=== PATIENT | male | born 1945 | race Caucasian/White ===

== ENCOUNTER 2019-10-06 09:19 | Outpatient (CLI) | payer MEDICARE, SELFPAY | END 2019-10-06 09:20 | disposition home or self-care (01) | LOC: CHSLAB 09:21 | PROVIDERS: PCP Internal Medicine; Visit Provider Internal Medicine | DX: R31.9 Hematuria, unspecified (principal) | CPT/HCPCS: 88104; 88108; 88305 ==

== ENCOUNTER 2020-01-11 07:14 | Outpatient (CLI) | payer MEDICARE, SELFPAY ==
[2020-01-11 07:29] LABS: Add Urine Microscopic? YES; Appearance Urine Clear (Clear); Bilirubin Urine Negative (Negative); Blood Urine 2+ (Negative); Color Urine Yellow (Yellow); Glucose Urine UA Negative (Negative); Ketones Urine Negative (Negative); Leukocyte Esterase Ur Negative (Negative); Nitrate Urine Negative (Negative); Protein Urine Negative (Negative); Specific Grav Ur >= 1.030 (1.010-1.020); Urobilinogen Urine 0.2 mg/dL (0.2-1.0); pH Urine 5.5 (5.0-8.0)
[2020-01-11 07:40] LABS: Squamous Epithelial Cell Urine Rare /hpf (Few); WBC Urine None seen /hpf (0-3)
[2020-01-11 07:41] LABS: Bacteria Urine Trace /hpf; Mucus Urine Few /lpf
[2020-01-11 07:52] LABS: Hemoglobin A1C 6.4 % (<5.7)
[2020-01-11 08:50] LABS: Alanine Aminotransferase 25 U/L (16-63); Albumin Level 3.7 g/dL (3.4-5.0); Alkaline Phosphatase 125 U/L (46-116); Anion Gap 14.4 mmol/L (7-16); Aspartate Amino Transferase 20 U/L (15-37); Bilirubin,Total 0.3 mg/dL (0.00-1.00); Blood Urea Nitrogen 17 mg/dL (7-18); Calcium 9.1 mg/dL (8.5-10.1); Carbon Dioxide 28 mmol/L (21-32); Chloride 104 mmol/L (98-108); Cholesterol 144 mg/dL (0-200); Creatine Kinase 148 U/L (39-308); Estimated Glomerular Filt Rate > 60; Glucose 116 mg/dL (70-99); HDL Direct 39 mg/dL (40-60); LDL Cholesterol Calculated 78 mg/dL (<130); Osmolality Calculated 296 mOsm/kg (285-295); Potassium 4.4 mmol/L (3.5-5.1); Sodium 142 mmol/L (136-145); Total Protein 7.1 g/dL (6.4-8.2); Triglycerides 135 mg/dL (0-150)
== END 2020-01-11 07:15 | disposition home or self-care (01) ==
PROVIDERS: PCP Internal Medicine; Visit Provider Internal Medicine
DX: E78.2 Mixed hyperlipidemia (principal); E11.9 Type 2 diabetes mellitus without complications; I10 Essential (primary) hypertension
CPT/HCPCS: 36415; 80053; 80061; 81001; 82550; 83036

== ENCOUNTER 2020-01-22 08:09 | Outpatient (CLI) | payer MEDICARE, SELFPAY ==
--- NOTE | ~2020-01-22 | US_ITS ---
EXAMINATION: US retroperitoneal comp DATE: 01/22/2020 08:34 INDICATION: Hematuria. TECHNIQUE: Multiple ultrasound grayscale images of the kidneys were obtained. COMPARISON: CT 08/26/2017 FINDINGS: The right kidney measures 12.2 x 6.7 x 5.9 cm. The left kidney measures 12.0 x 5.3 x 6.2 cm. The kidn eys demonstrate normal parenchymal echogenicity. There is a 6.1 cm cyst in left kidney. There is no h ydronephrosis. The bladder is normal. IMPRESSION: 1. Normal kidney sizes. No hydronephrosis. Reviewed, dictated and finalized at location A.
== END 2020-01-22 08:10 | disposition home or self-care (01) ==
PROVIDERS: PCP Internal Medicine; Visit Provider Internal Medicine
DX: R31.9 Hematuria, unspecified (principal)
CPT/HCPCS: 76770

== ENCOUNTER 2020-07-15 07:00 | Outpatient (CLI) | payer MEDICARE, SELFPAY ==
[2020-07-15 07:17] LABS: Appearance Urine Clear (Clear); Bilirubin Urine Negative (Negative); Color Urine Yellow (Yellow); Glucose Urine UA Negative (Negative); Ketones Urine Negative (Negative); Leukocyte Esterase Ur Negative (Negative); Nitrate Urine Negative (Negative); Protein Urine Negative (Negative); Specific Grav Ur 1.025 (1.010-1.020); Urobilinogen Urine 0.2 mg/dL (0.2-1.0)
[2020-07-15 07:44] LABS: Add Urine Microscopic? YES; Blood Urine Trace (Negative)
[2020-07-15 07:45] LABS: Bacteria Urine Trace /hpf; Mucus Urine Moderate /lpf; WBC Urine 0-3 /hpf (0-3)
[2020-07-15 08:21] LABS: Hemoglobin A1C 6.2 % (<5.7)
[2020-07-15 08:38] LABS: Alanine Aminotransferase 27 U/L (16-63); Albumin Level 3.7 g/dL (3.4-5.0); Alkaline Phosphatase 112 U/L (46-116); Anion Gap 9 mmol/L (8-16); Aspartate Amino Transferase 26 U/L (15-37); Bilirubin,Total 0.4 mg/dL (0.00-1.00); Blood Urea Nitrogen 15 mg/dL (7-18); Calcium 8.9 mg/dL (8.5-10.1); Carbon Dioxide 28 mmol/L (21-32); Chloride 104 mmol/L (98-108); Cholesterol 149 mg/dL (0-200); Creatine Kinase 166 U/L (39-308); Estimated Glomerular Filt Rate > 60; Glucose 113 mg/dL (70-99); HDL Direct 42 mg/dL (40-60); LDL Cholesterol Calculated 88 mg/dL (<130); Osmolality Calculated 293 mOsm/kg (285-295); Potassium 5.4 mmol/L (3.5-5.1); Sodium 141 mmol/L (136-145); Total Protein 7.4 g/dL (6.4-8.2); Triglycerides 93 mg/dL (0-150)
== END 2020-07-15 07:01 | disposition home or self-care (01) ==
LOC: CHSLAB 07:02
PROVIDERS: PCP Internal Medicine; Visit Provider Internal Medicine
DX: E78.2 Mixed hyperlipidemia (principal); I10 Essential (primary) hypertension; R73.01 Impaired fasting glucose
CPT/HCPCS: 36415; 80053; 80061; 81001; 82550; 83036

== ENCOUNTER 2021-10-18 17:15 | Emergency (ER) | payer MEDICARE, OTHER, SELFPAY ==
--- NOTE | ~2021-10-18 | XR_ITS ---
EXAMINATION: XR elbow RT min 3V INDICATION: Rash of the elbow TECHNIQUE: Four views of the right elbow were obtained. COMPARISON: None available FINDINGS: There is no fracture, dislocation, or subluxation. The bones and joint spaces are normal. T here is posterior soft tissue swelling of the forearm. IMPRESSION: 1. Posterior soft tissue swelling of the forearm without acute osseous abnormality. Reviewed, dictated and finalized at location F. NCIAL SERVICES MANAGER IMPRESSION: 1. Posterior soft tissue swelling of the forearm without acute osseous abnormal ity.
[2021-10-18 17:44] VITALS: BP 171/107; PULSE 84; RESP 18; TEMP 36.1; O2SAT 98
[2021-10-18] MEDS: ACETAMINOPHEN 325 MG TABLET 650 MG PO (18:19)
[2021-10-18] MEDS: cefTRIAXone 1 GM VIAL IM (18:20)
[2021-10-18] MEDS: cloNIDine HCL 0.2 MG TABLET PO (18:20)
[2021-10-18 18:32] LABS: Basophils Absolute Auto 0.04 K/mm3 (0.00-0.10); Basophils Percent Auto 0.4 % (0.0-1.0); Eosinophils Absolute Auto 0.25 K/mm3 (0.02-0.50); Eosinophils Percent Auto 2.5 % (1.0-6.0); Hematocrit 42.2 % (37.0-46.0); Hemoglobin 14.3 g/dL (12.4-15.3); Immature Granulocyte Absolute 0.04 K/mm3 (0.00-0.00); Immature Granulocyte Percent A 0.4 % (0.0-0.0); Lymphocytes Absolute Auto 2.49 K/mm3 (1.10-4.50); Lymphocytes Percent Auto 24.6 % (18.0-42.0); Mean Corpuscular HGB Conc 33.9 g/dL (32.0-36.0); Mean Corpuscular Hemoglobin 30.2 pg (27.0-31.0); Mean Corpuscular Volume 89.2 fL (78.0-102.0); Mean Platelet Volume 8.8 fl (8.7-11.0); Monocytes Absolute Auto 1.03 K/mm3 (0.10-0.90); Monocytes Percent Auto 10.2 % (2.0-11.0); Neutrophils Absolute Auto 6.3 K/mm3 (1.7-7.2); Neutrophils Percent Auto 61.9 % (50.0-70.0); Platelet Count Result 288 K/mm3 (150-420); Red Blood Count 4.73 M/mm3 (4.70-6.10); Red Cell Distribution Width 13.7 % (11.6-14.4); White Blood Count 10.1 K/mm3 (4.8-10.8)
--- NOTE | 2021-10-18 18:41 | ED.SKABFB ---
HPI - Skin/Abscess/Foreign Bdy General Chief complaint: Skin/Abscess/Foreign Body Stated complaint: blister/rash right elbow Time Seen by Provider: 10/18/21 17:20 Source: patient and RN notes reviewed Mode of arrival: ambulatory Limitations: no limitations History of Present Illness complaint: rash, insect bite/sting and abscess/boil Onset (ago): day(s) (2) Tetanus up to date: unsure Location: RUE Severity: mild Severity scale (1-10): 4 Quality: aching and dull Pain Consistency: constant Relieving factors: none Exacerbating factors: none Associated symptoms: denies other symptoms Treatments prior to arrival: none Related Data Home Medications Medication Instructions Recorded Confirmed amlodipine 2.5 mg PO DAILY 10/18/21 10/18/21 atorvastatin 20 mg PO DAILY 10/18/21 10/18/21 losartan-hydrochlorothiazide 100 tablet PO DAILY 10/18/21 10/18/21 timolol maleate See Rx Instructions .ROUTE .COMPLEX 10/18/21 10/18/21 Allergies Allergy/AdvReac Type Severity Reaction Status Date / Time No Known Allergies Allergy Verified 10/18/21 18:13 Review of Systems Review of Systems: All systems reviewed & are unremarkable except as noted in HPI and below Constitutional: Constitutional: Reports as per HPI Musculoskeletal: Musculoskeletal: Reports arthralgias PMFSH Past Medical History Medical History Cellulitis Family History Family History Father Acute myocardial infarction Social History Social History Smoking status: Former smoker Exam Const: General: no acute distress and alert Nutritional Appearance: well nourished Orientation/consciousness: patient oriented x3 Limitations: no limitations HENMT: Head: normal to inspection Ears: external ears normal, TM's normal bilaterally and EAC's normal General nose exam: Normal external nose present and Normal nares present Face and sinus: normal facial exam and sinuses nontender Mouth: Yes moist mucous membranes Eyes: Conjunctivae: conjunctivae normal Pupils: Equal, round and reactive pupils present EOM: EOMs intact bilaterally Neck: Neck: normal visual inspection and no lymphadenopathy Other: supple Chest: Chest palpation & inspection: normal inspection of the chest Resp: Effort & Inspection: normal respiratory effort Auscultation: clear to auscultation bilaterally Cardio: Rate: regular rate Rhythm: regular rhythm GI: GI Palp: Yes Soft to palpation and No Tenderness to palpation present (GI) Auscultation: normal bowel sounds : General: Yes no CVA tenderness Male General Exam: Yes normal external exam Testes: Testes normal Back/Spine/Pelvis: Back: no CVA tenderness Skin: General skin exam: normal color Rashes: no rashes Neuro: General: patient oriented x3, moves all extremities, no meningeal signs, no focal motor deficits and CN's II-XI intact bilaterally Extrem: General: normal to inspection (right elbow cellulitis, no drainage, full ROM.), no clubbing, cyanosis or edema (right elbow redness and mildly swollen 8 cm diameter area. firm and minima) and no pedal edema Psych: Appearance: grossly normal and well kempt Mental Status: mental status grossly normal Affect: normal affect Thought content: Yes Normal thought content present Course Course Emergency Course: Stable pt with less right elbow pain Reevaluation(s) Reevaluation #1: VSS Date: 10/18/21 Time: 17:52 Vital Signs Vital signs: Vital Signs Temperature 36.1 C L 10/18/21 17:44 Pulse Rate 84 10/18/21 17:44 Respiratory Rate 18 10/18/21 17:44 Blood Pressure 171/107 H 10/18/21 17:44 Pulse Oximetry 98 10/18/21 17:44 Temperature 36.1 C L 10/18/21 17:44 Pulse Rate 84 10/18/21 17:44 Respiratory Rate 18 10/18/21 17:44 Blood Pressure 156/91 H 10/18/21 19:00 Pulse Oximetry 98 10/18/21 17:44
[2021-10-18 19:00] VITALS: BP 156/91
--- NOTE | 2021-10-18 19:00 | PC.NURSE ---
Wound cleaned up with hibclens and normal saline. Pt tolerated well. Wound dressed with dry 4x4 and wrapped with Kerlex per Dr. Romero verbal order. Pt tolerated well. Pt placed in right arm sling. PMS intact. Pt tolerated as well.
== END 2021-10-18 19:19 | disposition home or self-care (01) ==
PROVIDERS: Emergency Provider Emergency Medicine; PCP Internal Medicine
DX: L03.90 Cellulitis, unspecified (principal)
CPT/HCPCS: 36415; 73080; 85025; 96372; 99283; A4565; A9270; J0696

== ENCOUNTER 2022-10-14 13:01 | Outpatient (CLI) | payer MEDICARE, OTHER, SELFPAY ==
--- NOTE | ~2022-10-14 | XR_ITS ---
Right elbow Technique: AP, oblique, and lateral views were obtained. Clinical History: Pain Findings: No acute fracture or dislocation is seen. Osseous alignment is anatomic. Joint spaces are p reserved. There is no displacement of the fat pads, and soft tissues are unremarkable. Impression: Unremarkable radiographs. Reviewed, dictated and finalized at [facility]. COILER Impression: Unremarkable radiographs.
== END 2022-10-14 13:02 | disposition home or self-care (01) ==
LOC: CHSLAB 13:05
PROVIDERS: PCP Internal Medicine; Visit Provider Internal Medicine
DX: M86.631 Other chronic osteomyelitis, right radius and ulna (principal)
CPT/HCPCS: 73080

== ENCOUNTER 2022-10-17 07:32 | Outpatient (CLI) | payer MEDICARE, OTHER, SELFPAY ==
--- NOTE | ~2022-10-17 | MR_ITS ---
MRI of the right elbow CLINICAL HISTORY: Proximal ulnar osteomyelitis TECHNIQUE: Proton-density and proton-density fat-sat imaging was performed in the axial, coronal, and sagittal planes. FINDINGS: Ulnar collateral ligament is intact. Radial collateral ligament and the lateral ulnar colla teral ligament are intact. The common extensor and common flexor tendon origins are intact, without p artial tearing. There is probable mild tendinosis at the common extensor tendon origin. Bone marrow signals are unremarkable. No osseous or articular abnormality evident at the elbow joint. No elbow joint effusion. There is extensive edema of the proximal portions of the flexor digitorum profundus, flexor carpi uln debbi, and flexor digitorum superficialis muscles. There is subcutaneous soft tissue edema over the po sterior half of the elbow. No fluid collection/abscess identified. IMPRESSION: No evidence for osteomyelitis. Possible cellulitis over the posterior half of the elbow. Myositis of the proximal flexor digitorum profundus, flexor carpi ulnaris, and flexor digitorum super ficialis muscle bellies. This is presumably infectious in nature given history. Reviewed, dictated and finalized at [facility]. LANE WOODWORKER IMPRESSION: No evidence for osteomyelitis. Possible cellulitis over the posterior half of the elbow. Myositis of the proximal flexor digitorum profundus, flexor carpi ulnaris, and flexor digitorum superficialis muscle bellies. This is presumably infectious in nature given history.
== END 2022-10-17 07:33 | disposition home or self-care (01) ==
PROVIDERS: PCP Internal Medicine; Visit Provider Internal Medicine
DX: M86.8X8 Other osteomyelitis, other site (principal); M60.831 Other myositis, right forearm
CPT/HCPCS: 73221

== ENCOUNTER 2023-04-05 07:15 | Outpatient (CLI) | payer MEDICARE, OTHER, SELFPAY ==
--- NOTE | ~2023-04-05 | CT_ITS ---
EXAMINATION:CT lung screening DATE: 04/05/2023 07:34 INDICATION: Personal history of nicotine dependence. Smoker who quit 13 years ago with 46 pack year h istory. TECHNIQUE: Computed tomography (CT) of the chest was performed without intravenous contrast. Automate d exposure control and iterative reconstruction technique were employed. The dose-length product (DLP ) was 255.01 mGy-cm. COMPARISON: Chest CT 10/28/2018 FINDINGS: There is mild scarring at the lung apices. Calcified pulmonary nodules are consistent with old granulomatous disease. No pleural effusion. The heart size is normal. There are coronary artery c alcifications. No pericardial effusion. There is a small sliding hiatal hernia. Calcifications in the liver and spleen are consistent with old granulomatous disease. There is a 2.7 cm cyst in left kidne y. There is severe cervical spondylosis and mild thoracic spondylosis. There is mild chronic anterior wedging of multiple vertebral bodies. IMPRESSION: 1. Lung-RADS category 2: Benign appearance or behavior. Continue annual screening with noncontrast lo w-dose chest CT in 12 months. Reviewed, dictated and finalized at location A. IMPRESSION: 1. Lung-RADS category 2: Benign appearance or behavior. Continue annual screeni ng with noncontrast low-dose chest CT in 12 months.
== END 2023-04-05 07:16 | disposition home or self-care (01) ==
LOC: CHSIMG 07:17
PROVIDERS: PCP Internal Medicine; Visit Provider Internal Medicine
DX: Z12.2 Encounter for screening for malignant neoplasm of respiratory organs (principal); Z87.891 Personal history of nicotine dependence
CPT/HCPCS: 71271

== ENCOUNTER 2023-06-28 07:49 | Outpatient (CLI) | payer MEDICARE, OTHER, SELFPAY ==
--- NOTE | ~2023-06-28 | XR_ITS ---
Clinical Indication: Preoperative evaluation, abdominal aortic aneurysm PA and lateral views of the chest: Comparison: None Findings: The lungs are clear, without evidence of focal consolidation or pleural effusion. Cardiome diastinal silhouette is within normal limits. Bones and soft tissues are unremarkable. Impression: Normal chest. Reviewed, dictated and finalized at [facility]. ER MACHINE OPERATOR Impression: Normal chest.
--- NOTE | 2023-06-28 08:24 | ECG_ITS ---
Measurements Intervals [place] Rate: 61 P: 54 FL: 140 QRS: 25 QRSD: 92 T: 1 QT: 404 QTc: 409 Interpretive Statements SINUS RHYTHM MINIMAL Q WAVES- INFERIOR LEADS BORDERLINE ECG NO PREVIOUS ECG AVAILABLE FOR COMPARISON Electronically Signed On 06-28-2023 10:03:16 SEARCH MANAGER by Oliver Jack D.O.
[2023-06-28 08:49] LABS: Basophils Percent Auto 0.5 % (0.2-1.2); Eosinophils Absolute Auto 0.2 K/mm3 (0-0.3); Eosinophils Percent Auto 2.1 % (0-4.4); Hematocrit 40.1 % (42.0-52.0); Hemoglobin 12.8 g/dL (14.0-18.0); Immature Granulocyte Absolute 0.04 K/mm3 (0.00-0.031); Immature Granulocyte Percent A 0.5 % (0-0.5); Lymphocytes Absolute Auto 1.57 K/mm3 (0.9-3.2); Lymphocytes Percent Auto 20.5 % (18.3-44.2); Mean Corpuscular HGB Conc 31.9 g/dl (32-36); Mean Corpuscular Hemoglobin 27.4 pg (26-34); Mean Corpuscular Volume 85.9 fl (80-100); Mean Platelet Volume 9.4 fl (7.4-10.4); Monocytes Absolute Auto 0.9 K/mm3 (0.1-0.6); Monocytes Percent Auto 11.6 % (2.6-8.5); Neutrophils Percent Auto 64.8 % (45.5-73.1); Platelet Count Result 309 k/mm3 (150-375); Red Blood Count 4.67 M/mm3 (4.6-6.20); Red Cell Distribution Width 15.6 % (11.5-14.5); White Blood Count 7.7 K/mm3 (4.5-10.0)
[2023-06-28 08:59] LABS: Prothrombin Time 13.2 Seconds (11.1-14.7)
[2023-06-28 09:00] LABS: Anion Gap 6 mmol/L (8-16); Blood Urea Nitrogen 16 mg/dL (9-20); Calcium 9.4 mg/dL (8.4-10.2); Carbon Dioxide 28 mmol/L (22-30); Chloride 105 mmol/L (98-107); Estimated Glomerular Filt Rate > 60; Glucose 126 mg/dL (65-110); Potassium 3.7 mmol/L (3.4-5.0); Sodium 139 mmol/L (137-145)
== END 2023-06-28 07:50 | disposition home or self-care (01) ==
PROVIDERS: PCP Internal Medicine
DX: I97.89 Other postprocedural complications and disorders of the circulatory system, not elsewhere classified (principal); I71.40 Abdominal aortic aneurysm, without rupture, unspecified
CPT/HCPCS: 36415; 71046; 80048; 85025; 85610; 85730; 93005

== ENCOUNTER 2024-10-19 02:12 | Day surgery (SDC) | payer MEDICARE, OTHER, SELFPAY ==
[2024-10-06 10:58] VITALS: BMI 36.9
--- OUTSIDE RECORDS SUMMARY | 2024-10-19 02:17 | XMS_ITS | Clinical Summary ---
Author Organization [facility] Address [address] [place] [address] Care Team Providers Care Stockroom Inventory Clerk Name Role Phone Jayashree Orellana MD Primary Care Provider [phone] Medications amLODIPine 2.5 MG tablet Take 2.5 mg by mouth daily. 09/08/2021 Active atorvastatin 20 MG tablet Take 20 mg by mouth nightly at bedtime. 08/24/2021 Active Losartan Potassium-HCTZ 100-12.5 MG Tab Take 1 tablet by mouth daily. 08/31/2021 Active timolol 0.5 % ophthalmic solution Place 1 drop into the left eye 2 (two) times daily. 08/17/2021 Active aspirin EC (ASPIRIN EC) 81 MG tablet Take 81 mg by mouth daily. 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 Gender Identity Not on file Sexual Orientation Not on file Last Filed Vital Signs Vital Sign Reading Time Taken Comments Blood Pressure 148/109 11/03/2021 6:39 AM CDT 135/87 lt arm Pulse 73 11/03/2021 6:39 AM CDT Temperature 35.8 C (96.4 F) 11/03/2021 6:39 AM CDT Respiratory Rate 10 11/03/2021 6:39 AM CDT Oxygen Saturation 97% 11/03/2021 6:3 9 AM CDT Inhaled Oxygen Concentration - - Weight 121.7 kg (268 lb 4.8 oz) 11/03/2021 6:39 AM CDT Height 180.3 cm (5' 11 ) 11/03/2021 6:3 9 AM CDT Body Mass Index 37.42 11/03/2021 6:39 AM CDT Plan of Treatment Health Maintenance Due Date Last Done Comments Hepatitis C 02/25/1963 DTaP, Tdap and Td Vaccines ( 1 - Tdap) 1964 Annual Medicare Wellness Visit 2011 Pneumococcal Vaccine: 65+ Years (1 of 1 - PCV) 2011 RSV Immunization or 60+ Years (1 - 1-dose 75+ series) 2021 COVID-19 Vaccine (4 - 2023-2 5 season) 2024 05/26/2021, 11/01/2020, 10/11/2020 Influenza Adult (#1) 2024 07/08/2021 Zoster Vaccines Completed 05/08/2020, 01/25/2020 Meningococcal B Vaccine Aged Out No l onger eligible based on patient's age to complete this topic Meningococcal Vaccine Aged Out No jose gabriel eligible based on patient's age to complete this topic RSV Immunizations Under 20 Months Aged Out No longer eligible b ased on patient's age to complete this topic Medical Devices Implanted Type Area Field Merchandiser Device Identifier Shelf Expiration Date Model / Serial / Lot Penumbra Sweta Coil Lp Endo Leak-11/03/2021 Implanted:2021 by Surjit Cornejo MD (Quantity not on file) Coil PENUMBRA 09/25/2024 [id number] / / [id number] Penumbra Sweta Coil Lp Endo Leak-11/03/2021 Implanted:2021 by Surjit Cornejo MD (Quantity not on file) Coil PENUMBRA 09/05/2024 [id number] / / [id number] Penumbra Sweta Coil Lp Endo Leak-11/03/2021 Implanted:2021 by Surjit Cornejo MD (Quantity not on file) Coil PENUMBRA 09/05/2024 [id number] / / [id number] Insurance MEDICARE [facility] Care Teams Stockroom Inventory Clerk Relationship Specialty Start Date End Date Jayashree Orellana MD [address] [place] [address] PCP - General INTERNAL MEDICINE 10/31/21
--- OUTSIDE RECORDS SUMMARY | 2024-10-19 02:17 | XMS_ITS | Data Portability ---
Author Organization [facility], [address] [place] [address] [place] ([place]) Address [address] [address] Care Team Providers Care Calculating Machine Operator Name Role Phone SAL BORJAS Primary Care Provider [phone] Assessment Encounter Date Assessment Date Assessment LastModified by Organization Details LastModified Time 05/05/2024 05/05/2024 1. 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 Db Chavez Not available Not available Not available Lab None recorded . Referral None recorded . Procedures None recorded . Surgeries None recorded . Imaging None recorded . Medication Orders None recorded . Patient TargetsNo targets recorded. Patient InstructionsNo instructions recorded. Reason for Referral None Reported. Results Created Date Observation Date Name Description Value Unit Range Abnormal Flag Note LastModifiedBy Organization Detail LastModifiedTime 05/05/2005/05/2024 Crea iStat creatinine-i stat Not Available [facility] [address] [place] [address], [address], 05/05/2024 13:00:36 05/05/2005/05/2024 Crea iStat creatinine 0.9 mg/dL 0.7-1. 3 Not Available [facility] [address], [address], 05/05/2024 13:00:36 05/05/2005/05/2024 Crea iStat eGFR;non-afr ican singaporean 87 Not Available [facility] [address] [place] [address], [address], 05/05/2024 13:00:36 05/05/20 24 05/05/2024 Crea iStat eGFR; 105 (LEAD PROJECT ENGINEER JAEL KIDNE Y DISEA SE HAS A GFR LESS THAN 60 ML/KS N/1.7 3 MM FOR A PERIO D OF THREE MONTH S OR MORE. ) Not Available [facility] [address] [place] [address], [address], 05/05/2024 13:00:36 09/26/19 25 09/26/2024 POC CREA creatinine, I-stat 1.2 mg/dL 0.7-1. 4 Not Available [facility] - [facility] [address], [address], 09/26/2024 16:08:24 05/05/20 24 05/05/2024 CT, angio gram, abdom en + pelvi s, w/ contr ast [address] [address] Teleph one [phone] Name: Lani Covington [id number] am Date: 2023 Age: 79Phys ician: Cecilio ya MD, Surjit : 1944Ex aminat ion: CTA ABD/PE L W PLUS POST PROCES S CTA ABDOME N AND PELVIS HISTOR Y: Abdomi nal aortic aneury sm post repair . Follow -up. Radha hayden histor y. COMPAR FIORDALIZA EXAMS: CTA 023 TECHNI QUE: Noncon trast images of the abdomi nal aorta obtain ed. CTA abdome n and pelvis obtain ed before and after the intrav enous admini strati on of 100 millil iters of Isovue -370 via the right antecu bital fossa . Portal venous phase images obtain ed throug h the abdome n. Multip le vascul ar reform ats, vascul ar analys is and 3-D recons tructi ons were obtain ed for diagno sis. Automa velasquez exposu re contro l was used as a dose optimi zation techni que for the examin ation. FINDIN GS: CTA abdome n/pelv is: There is athero sclero sis of the abdomi nal aorta. The celiac axis is widely patent . Replac ed left hepati c artery arises from the left gastri c artery . The SMA is widely patent . There are single bilate ral renal arteri es which are widely patent . The JODIE is occlud ed, unchan ged. The patien t is status post aortob iiliac stent repair of a previo usly seen abdomi nal aortic aneury sm. Stent graft arises just below the takeof f of the renal arteri es extend ing into the right service or work dispatcher al iliac artery and mid to distal left common iliac artery . Stent graft appear s widely patent . Emboli c coils are presen t within the miccosukee aneury sm sac. There is eviden ce for type II endole ak within the [place]uke[place] aneury sm sac which was presen t on prior. The miccosukee aneury sm sac measur es approx imatel y 7.6 x 8.5 cm, previo usly 7.2 x 7.9 cm. No retrop eriton eal hemorr nile is identi fied. Emboli c coils are also presen t within the right vacuum truck driver ior pelvis , unchan ged. Stable focal aneury smal dilata tion of the right proxim al pharmacy grad intern al iliac artery measur ing approx imatel y 2.5 cm which appear s thromb osed, unchan ged. No pelvic hemorr nile. CT ABDOME N: Lung bases are clear. No pleura l or perica rdial effusi ons are presen t at the lung bases. Liver is normal in morpho logy. There is no hepati c mass. The gallbl adder is normal . There is no bile duct dilata tion. The spleen is normal in size. Small calcif icatio ns within both the liver and spleen sequel a of prior granul omatou s diseas e. The pancre as is normal . There is no adrena l mass. No renal calcul i bilate rally. There is a small parape lvic cyst at the superi or aspect of the left kidney , unchan ged. There is a large exophy tic cyst arisin g from the anteri or mid inferi or left kidney measur ing up to 11.5 cm, unchan ged. A few very small right renal cysts are presen t. There is no hydron ephros is bilate rally. There is no upper abdomi nal lympha denopa thy. CT PELVIS : The bowel is unopac ified. No signif icantl y dilate d loops of small bowel are identi fied. There is coloni c divert iculos is. Append ix not seen. No second hayley signs of acute append icitis . There is no bowel obstru ction or free air. There is a tiny fat-co ntaini ng perium bilica l hernia . The urinar y bladde r is not well-d istend ed. The prosta te gland is mildly enlarg ed. A few scatte red pelvic phlebo liths are presen t. There is no free pelvic fluid. There is no pelvic lympha denopa thy. No destru ctive osseou s lesion s are identi fied. IMPRES RAFI: 1. Mild interv al increa se in size of the miccosukee aneury sm sac post aortob iiliac stent repair with eviden ce for persis tent type II endole ak. No retrop eriton eal pelvic hemorr nile is identi fied. 2. Coloni c divert iculos is. Electr onical ly signed in [place] amanda by: ELIZABETH VARGAS MD on:04/23 12:53 PM cc: Page PAGE 1 of [facility] 1 [email or web address] [facility] [address] [place] [address], [id number], 05/14/2024 23:11:14 09/26/19 25 09/26/2024 CT, angio gram, abdom en + pelvi s, w/wo contr [facility] [address] [place] [address] Name: LANI COVINGTON 6 Age: 79 : 1944 Exam Date: 2024 ACCESS ION: [id number] ESTEFANI KILPATRICK MD: MARGI SINGH Exam: CTA Abd/Pe l w/wo contra st Histor y: Patien t presen ts for follow up AAA with repair . He has no compla ints. IR clinic appoin tment to follow . Histor y of Cancer : denies Histor y of Surger y: appy, aaa repair Techni que: Precon trast images of the abdome n and pelvis were obtain ed. Arteri al phase images of the abdome n and pelvis were obtain ed after 100ml of Omnipa que 350 was inject ed throug h the rac withou t eviden ce of advers e reacti on. Delaye d postco ntrast images of the abdomi nal aorta were obtain ed. Volume tric MIP images were create d from the arteri al phase data set. Automa velasquez exposu re contro l was used for dose optimi zation on this exam. CTDIvo l in mGy: 118.6 DLP in mGy-cm : 3904 Compar fiordaliza: The Findin gs: Vascul ar: There is an infrar enal abdomi nal aortic aneury sm status post endova scular aortob i-jamey c repair . The aneury sm measur es 8.4 cm x 8 cm (previ ously 7.6 cm x 7.5 cm). The stent graft origin ates inferi or to the renal arteri es and termin ates in the left common iliac and right service or work dispatcher al iliac artery . There is metall ic emboli zation materi al within the aneury sm sac and stent graft, which result s in signif icant metall ic hardwa re artifa ct and partia lly limits evalua tion for stenos is and endole ak. There is a modera te amount of endole ak within the anteri or aneury sm sac. A defini tive etiolo gy is not identi fied, howeve r this may be type 2 from the inferi or mesent susana artery . The inferi or mesent susana artery contai ns emboli zation materi al. Other major abdomi nal aortic branch es are patent withou t hemody namica lly signif icant stenos is. Right pharmacy grad intern al iliac artery is comple tely occlud ed at its origin with some distal collat eral recons tituti on. The service or work dispatcher al iliac arteri es are patent withou t signif icant stenos is Nonvas cular: The liver, gallbl adder, pancre as, spleen , adrena ls, and right kidney are unrema rkable . Left renal sinus cyst measur es 3.2 cm. Bowel calibe r is normal . There is coloni c divert iculos is withou t associ ated inflam matory change s. No ascite s or pneumo perito neum. No aggres sive osseou s lesion s. Impres rafi: Infrar enal aortic aneury sm status post endova scular repair measur ing 8.4 cm is increa sed (previ ously 7.6 cm). There is endole ak within the anteri or aneury sm sac that is incomp letely charac terize d due to signif icant artifa ct from emboli zation materi al. This could be type 2 from the inferi or mesent susana artery . This report was dictat ed remote ly by a [facility]iol ogist in [place], [place]. Final Report Dictat ed: 16:14 Db Anderson MD Signed : 16:14 Db Anderson MD INTERFACE [facility] [address] [place] [address], [id number], 09/26/2024 17:18:54 Result Notes None recorded. Problems Name Problem SNOMED Code Status Onset Date Resolution Date Notes Provider Name and Address Organization Details Recorded Time Abdominal aortic aneurysm without rupture 05756729 Active 024 Katelyn Bravo [facility] 4 03:55:07 Aneurysm of infrarenal abdominal aorta 797169670 Active 024 Surjit Cornejo MD [address] [place] [address], [phone] [place] [address] 4 21:58:55 Problem Notes None recorded. Procedures Surgical History None recorded. Imaging Results Imaging Date Name Status LastModified by Organiz [facility] Details LastModified Time 05/05/2024 CT, angiogram, abdomen + pelvis, w/ contrast completed [id number] [facility] [address] [place], [address], 05/14/2024 23:11:14 09/26/2024 CT, angiogram, abdomen + pelvis, w/wo contrast completed INTERFACE [facility] - [facility] [address] [place] [address] [place], [address], 09/26/2024 17:18:54 Procedure Notes None recorded. Medical Equipment None Reported. Medications Name Sig Start Date Stop Date Status Note LastModified by Organization Details LastModified Time cefuroxime axetil 250 mg tablet TAKE 1 TABLET BY MOUTH EVERY 12 HOURS 05/05 completed Not Available Not Available Not Available atorvastati n 20 mg tablet TAKE 1 TABLET BY MOUTH EVERY DAY active Not Available Not Available No t Available Nexium 40 mg capsule,del ayed release Take 1 capsule every day by oral route. active Not Available Not Available No t Available aspirin 81 mg tablet,gayle yed release Take 1 tablet every day by oral route. active Not Available Not Available No t Available amlodipine 10 mg tablet TAKE 1 TABLET BY MOUTH EVERY DAY active Not Available Not Available No t Available timolol maleate 0.25 % eye drops INSTILL 1 DROP IN LEFT EYE TWICE DAILY active Not Available Not Available No t Available clotrimazol e-betametha sone 1 %-0.05 % topical cream APPLY TO AFFECTED AREA TWICE A DAY IN THE MORNING AND IN THE EVENING 05/05 completed Not Available Not Available Not Available mupirocin 2 % topical ointment APPLY SPARINGLY TO AFFECTED AREA TWICE A DAY 05/05 completed Not Available Not Available Not Available timolol maleate 0.5 % eye drops INSTILL 1 DROP INTO LEFT EYE TWICE A DAY active Not Available Not Available No t Available losartan 100 mg-hydrochl orothiazide 12.5 mg tablet TAKE 1 TABLET BY MOUTH EVERY DAY active Not Available Not Available No t Available Vitals Date Recorded Body height Body mass index (BMI) Body weight Heart rate Respiratory rate Oxygen saturation Oxygen saturation in Arterial blood by Pulse oximetry Systolic blood pressure Diastolic blood pressure Provider Name and Address Organization Details Last Updated DateTime 154.94 cm 50.6 kg/m2 645367. 76 g 68 /min 16 /min 97 % 97 % 142 mm[Hg] 82 mm[Hg] Yenny Vicente [facility] 14:32:08 Social History None recorded. Functional Status None recorded. Mental Status None recorded. Family History Nothing Reported. Medical History No medical history recorded. Past Encounters Encounter ID Performer Location Encounter Start Date Encounter Closed Date Diagnosis/Indication Diagnosis SNOMED-CT Code Diagnosis ICD10 Code Diagnosis Note [id number] Surjit Cornejo MD [address] [facility] [facility] [address] [place] [address] [address] 05/05/2024 13:28:23 05/05/2024 16:29:18 Aneurysm of infrarenal abdominal aorta 105802877 I71.43 Additional diagnosis detail: Infrarenal abdominal aortic aneurysm (AAA) without rupture Health Concerns Section Related Observation LastModified by Organization Detai ls LastModified Time None Recorded Concern Status LastModified by Organization Details LastModified Time None Recorded Advance Directives Directive None Recorded Payers Encounter Date Sequence Insurance Name Policy Number Policy Soares Covered Member ID Soares Member ID Guarantor Name 05/05/2024 1 [place] Lani Covington [id number] Lani Covington 05/05/2024 2 [facility] Lani Covington [id number] Lani Covington Notes Date Note Type Note Provider Name and Address Organization Details Recorded Time 05/05/2024 text/html Chief Complaint (CC): Follow-up for endovascular aneurysm repair.History of Present Illness (HPI): The patient, a 79-year-old gentleman, presents for follow-up after undergoing right internal iliac artery coil embolization and right iliac limb extension for a type 1b endoleak in June 2023 at [facility]. He has a history of endovascular aneurysm repair with a core excluder stent graft and previous embolization of the inferior mesenteric artery (JODIE) for an enlarging aneurysm sac. A recent CT scan shows a persistent type 2 endoleak with slight aneurysm growth of 1-2 millimeters, indicating back pressure into the aneurysm sac. The patient reports feeling like a pincushion due to multiple venipunctures during recent procedures. Surjit Cornejo MD [address] [place] [address], [phone], [facility] 05/14/2024 22:00:19
[2024-10-19 09:07] VITALS: BP 132/81; PULSE 85; RESP 20; TEMP 36.3; O2SAT 97; BMI 35.9
[2024-10-19] MEDS: LACTATED RINGERS 1,000 ML 150 ML IV CONT (09:18)
--- NOTE | 2024-10-19 10:01 | PM.IMHP ---
H&P: HPI History of Present Illness Date/Time: 10/19/24 10:01 Chief Complaint: Iron deficiency anemia Narrative: This is a 79-year-old man who presents for colonoscopy. He has recently been found to have anemia and was found to be iron deficient. He denies any hematochezia or melena prior to starting the iron, but now since he started on iron supplement his stools are black. He denies any family history of colon cancer. He did have a colonoscopy about 25 years ago. Review of Systems Review of Systems: All systems reviewed & are unremarkable except as noted in HPI and below Constitutional: Constitutional: Denies chills, Denies fever(s), Denies headache(s) and Denies weight loss Eyes: Eyes: Denies change in vision ENT: Denies dizziness, Denies headache(s), Denies neck mass and Denies throat swelling Cardiovascular: Cardiovascular: Denies chest pain, Denies lightheadedness and Denies dyspnea Respiratory: Respiratory: Denies cough, Denies dyspnea and Denies wheezing Gastrointestinal: Gastrointestinal: Denies abdominal pain, Denies change in bowel habits, Denies nausea and Denies vomiting Genitourinary: Genitourinary: Denies hematuria and Denies dysuria Musculoskeletal: Musculoskeletal: Reports as per HPI Integumentary/Breasts: Skin/Breast: Reports as per HPI Neurologic: Denies dizziness and Denies headache(s) Allergic/Immunologic: Allergic/Immunologic: Denies throat swelling and Denies wheezing [facility] Past Medical History Medical History (Updated 10/19/24 @ 10:02 by Markus Armando DO) AAA (abdominal aortic aneurysm) Hyperlipidemia Hypertension Cellulitis Family History Family History Father Acute myocardial infarction Social History Social History (System 10/02/24 @ 14:33 by Vernell Yeh) Smoking packs per day: 1 Smoking cigarettes per day: 20.0 Years smoked: 40 Smoking pack-years: 40.00 Smoking status: Former smoker Tobacco type: cigarettes Alcohol intake: current Drinks per week: 1 Alcohol use details: socially Substance use: never Substance use type: does not use Living arrangements: with family Spiritual care concerns: No Meds Home Medications and Allergies Home Medications ?Medication ?Instructions ?Recorded ?Confirmed ?Type acetaminophen 325 mg tablet 650 mg (2 x 325 mg) PO Q8H #20 tabs 10/18/21 10/06/24 Rx (Tylenol) amlodipine 2.5 mg tablet 10 mg PO DAILY 10/18/21 10/06/24 History atorvastatin 20 mg tablet 20 mg PO DAILY 10/18/21 10/19/24 History losartan 100 100 tablet PO DAILY 10/18/21 10/19/24 History mg-hydrochlorothiazide 12.5 mg tablet timolol maleate 0.5 % eye drops See Rx Instructions .Route .COMPLEX 10/18/21 10/19/24 History amlodipine 10 mg tablet 10 mg PO DAILY 09/05/24 10/19/24 History aspirin 81 mg tablet,delayed 81 mg PO DAILY 09/05/24 10/19/24 History release (Adult Low Dose Aspirin) esomeprazole magnesium 20 mg 20 mg PO DAILY 09/05/24 10/19/24 History capsule,delayed release (Nexium) ferrous sulfate 325 mg (65 mg 325 mg PO DAILY 09/05/24 10/19/24 History iron) tablet (Iron (ferrous sulfate)) multivitamin 1 tablet PO DAILY 09/05/24 10/19/24 History Allergies Allergy/AdvReac Type Severity Reaction Status Date / Time No Known Allergies Allergy Verified 10/19/24 09:05 Vital Signs Vital Signs - 24 hr 10/19/24 09:07 Temperature 97.4 F L Pulse Rate 85 Respiratory Rate 20 Blood Pressure 132/81 Pulse Oximetry 97 Oxygen Delivery Room Air Exam Const: General: no acute distress and alert Orientation/consciousness: patient oriented x3 HENMT: Head: normocephalic and atraumatic Ears: hearing grossly normal bilaterally Face/Nose/Sinus: Normal nares present Mouth: Yes Normal oral and palatal mucosa present Eyes: Periorbital: periorbital findings normal Sclera: sclerae normal EOM: EOMs intact bilaterally Neck: Neck: normal visual inspection, no lymphadenopathy and trachea midline Chest: Chest palpation & inspection: normal inspection of the chest Resp: Effort & Inspection: normal respiratory effort Auscultation: clear to auscultation bilaterally Cardio: Jugular venous distension: no JVD Rate: regular rate Rhythm: regular rhythm Heart sounds: S1 normal heart sound present and S2 normal heart sound present Peripheral pulses: Peripheral pulses 2+ throughout GI: Inspection: normal to inspection GI Palp: Yes Soft to palpation, No Tenderness to palpation present (GI), No Guarding due to palpation present (GI) and No Rebound tenderness present Percussion: Yes normal to percussion Auscultation: normal bowel sounds : General: Yes no CVA tenderness Back/Spine/Pelvis: Back: no CVA tenderness Neuro: General: patient oriented x3, no focal motor deficits and CN's II-XI intact bilaterally Cognition (Neuro): normal cognition Speech: normal speech Motor exam (neuro): 5/5 motor strength present throughout Extrem: General: capillary refill normal and no clubbing, cyanosis or edema Assessment and Plan Assessment and plan (1) Iron deficiency anemia: Code(s): D50.9 - Iron deficiency anemia, unspecified Status: Acute Assessment and Plan: I have recommended colonoscopy. I have discussed the procedure, risks, benefits, and alternatives. Questions were answered. Patient is agreeable to proceed.
--- NOTE | 2024-10-19 10:09 | WPDANESEPPF ---
Anes - Initial Pre Proc Eval Procedure: Operation Date: 10/19/24 10:00 Proposed Procedures p Colonoscopy - Markus Armando DO Date/Time: 10/19/24 10:09 Surgeon: Markus Armando DO Pre Op Diagnosis: Iron deficiency anemia Patient Data Age: 79 Gender: M Height: 1.8 m Weight: 117 kg Last Vital Signs Temp 97.4 F L 10/19/24 09:07 Pulse 85 10/19/24 09:07 Resp 20 10/19/24 09:07 BP 132/81 10/19/24 09:07 Pulse Ox 97 10/19/24 09:07 O2 Del Method Room Air 10/19/24 09:07 Allergies Allergy/AdvReac Type Severity Reaction Status Date / Time No Known Allergies Allergy Verified 10/19/24 09:05 Home Medications ?Medication ?Instructions ?Recorded ?Confirmed ?Type acetaminophen 325 mg tablet 650 mg (2 x 325 mg) PO Q8H #20 tabs 10/18/21 10/06/24 Rx (Tylenol) amlodipine 2.5 mg tablet 10 mg PO DAILY 10/18/21 10/06/24 History atorvastatin 20 mg tablet 20 mg PO DAILY 10/18/21 10/19/24 History losartan 100 100 tablet PO DAILY 10/18/21 10/19/24 History mg-hydrochlorothiazide 12.5 mg tablet timolol maleate 0.5 % eye drops See Rx Instructions .Route .COMPLEX 10/18/21 10/19/24 History amlodipine 10 mg tablet 10 mg PO DAILY 09/05/24 10/19/24 History aspirin 81 mg tablet,delayed 81 mg PO DAILY 09/05/24 10/19/24 History release (Adult Low Dose Aspirin) esomeprazole magnesium 20 mg 20 mg PO DAILY 09/05/24 10/19/24 History capsule,delayed release (Nexium) ferrous sulfate 325 mg (65 mg 325 mg PO DAILY 09/05/24 10/19/24 History iron) tablet (Iron (ferrous sulfate)) multivitamin 1 tablet PO DAILY 09/05/24 10/19/24 History Patient hx anesthesia problems: none Family hx anesthesia problems: none Results Review: All pre-operative results and documents have been reviewed as part of the pre-operative evaluation. [facility] Past Medical History Medical History AAA (abdominal aortic aneurysm) Hyperlipidemia Hypertension Cellulitis Family History Family History Father Acute myocardial infarction Social History Social History Smoking packs per day: 1 Smoking cigarettes per day: 20.0 Years smoked: 40 Smoking pack-years: 40.00 Smoking status: Former smoker Tobacco type: cigarettes Alcohol intake: current Drinks per week: 1 Alcohol use details: socially Substance use: never Substance use type: does not use Living arrangements: with family Spiritual care concerns: No Anes - Eval Final PreProcedure Day of Procedure 10/19/24 10:09 Patient weight: obese Lungs: normal air movement Airway: Mallampati scale class II Neurological: alert and oriented Last oral intake: >/= 8 hours ASA classification: III Emergent: no Anesthetic plan: proceed Anesthesia type and monitoring: general GIVS and standard monitoring Results Review: All pre-operative results and documents have been reviewed as part of the pre-operative evaluation. HTN, hyperlipidemia, hx AAA repair. Informed Consent: The patient's anesthetic plan and its attendant risks and benefits were discussed with the patient/family/POA. Questions were solicited and answers provided to the satisfaction of the patient/family/POA.
[2024-10-19 10:43] VITALS: BP 103/69; PULSE 88; RESP 16; O2SAT 96
[2024-10-19 10:53] VITALS: BP 124/78; RESP 16; O2SAT 95
[2024-10-19 11:03] VITALS: BP 125/80; PULSE 71; RESP 17; O2SAT 96
== END 2024-10-19 11:18 | disposition home or self-care (01) ==
PROVIDERS: PCP Internal Medicine; Visit Provider Surgery
PROC: 0DJD8ZZ Inspection of Lower Intestinal Tract, Via Natural or Artificial Opening Endoscopic (ICD-10-PCS; CPT 45378; principal; 2024-10-19 10:00)
DX: D50.9 Iron deficiency anemia, unspecified (principal); D12.0 Benign neoplasm of cecum; D12.2 Benign neoplasm of ascending colon; K57.30 Diverticulosis of large intestine without perforation or abscess without bleeding; Z87.891 Personal history of nicotine dependence; E66.9 Obesity, unspecified; Z68.36 Body mass index [BMI] 36.0-36.9, adult
CPT/HCPCS: 45380; 45385; 88305; J2003; J2704; J7120

== ENCOUNTER 2024-11-17 09:40 | Outpatient (CLI) | payer MEDICARE, OTHER, SELFPAY ==
--- OUTSIDE RECORDS SUMMARY | 2024-11-17 10:33 | XMS_ITS | Data Portability ---
Author Organization [facility], [address] [place] [address] Neurology (MD) Address [address] [address] Care Team Providers Care Mine Shifter Name Role Phone SAL BORJAS Primary Care Provider Assessment Encounter Date Assessment Date Assessment LastModified by Organization Details LastModified Time 05/05/2024 05/05/2024 1. 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 Db Chavez Not available Not [...] 05/05/2005/05/2024 Crea iStat creatinine-i stat Not Available [facility] [address] [place] [address], [address], 05/05/2024 13:00:36 05/05/2005/05/2024 Crea iStat creatinine 0.9 mg/dL 0.7-1. 3 Not Available [facility] [address], [address], 05/05/2024 13:00:36 05/05/2005/05/2024 Crea iStat eGFR;non-afr ican tongan 87 Not Available Ri [facility] - [facility] [address] [place] [address], [address], 05/05/2024 13:00:36 05/05/20 24 05/05/2024 Crea iStat eGFR; 105 (INDUSTRIAL EQUIPMENT WIRER JAEL KIDNE Y DISEA SE HAS A GFR LESS THAN 60 ML/RI N/1.7 3 MM FOR A PERIO D OF THREE MONTH S OR MORE. ) Not Available [facility] [address] [place] [address], [address], 05/05/2024 13:00:36 09/26/19 25 09/26/2024 POC CREA creatinine, I-stat 1.2 mg/dL 0.7-1. 4 Not Available Ri Only - [facility] [address], [address], 09/26/2024 16:08:24 05/05/20 24 05/05/2024 CT, angio gram, abdom en + pelvi s, w/ contr ast [address] [address] Teleph one Name: Lani Covington [id number] am Date: 2023 [...] arteri es extend ing into the right rehab consultant al iliac artery and mid to distal left common iliac artery . Stent graft appear s widely patent . Emboli c coils are presen t within the koi aneury sm sac. There is eviden ce for type II endole ak within the koi aneury sm sac which was presen t on prior. The koi aneury sm sac measur es approx imatel y 7.6 x 8.5 cm, previo usly 7.2 x 7.9 cm. No retrop eriton eal hemorr nile is identi fied. Emboli c coils are also presen t within the right thermometer production worker ior pelvis , unchan ged. 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 No retrop eriton eal pelvic hemorr nile is identi fied. 2. Coloni c divert iculos is. Electr onical ly signed in [place] amanda by: ELIZABETH VARGAS MD on:04/23 12:53 PM cc: Page PAGE 1 of [facility] 1 [email or web address] Ri Only - [facility] [address] [place] [address], [address], 05/14/2024 23:11:14 09/26/19 25 09/26/2024 CT, angio gram, abdom en + pelvi s, w/wo contr [facility] [address] [place] [address] Name: LANI COVINGTON 6 Age: 79 : 1944 Exam Date: 2024 ACCESS ION: [id number] ESTEFANI KILPATRICK MD: MARGI SINGH Exam: CTA [...] in the left common iliac and right rehab consultant al iliac artery . There is metall [...] namica lly signif icant stenos is. 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 The rehab consultant al iliac arteri es are patent withou [...] was dictat ed remote ly by a [facility] Radiol ogist in [place], [place]. Final Report Dictat ed: 16:14 Db Anderson MD Signed : 16:14 Db Anderson MD INTERFACE [facility] [address] [place] [address], [address], 09/26/2024 17:18:54 Result Notes None recorded. Problems Name Problem SNOMED Code Status Onset Date Resolution Date Notes Provider Name and Address Organization Details Recorded Time Abdominal aortic aneurysm without rupture 91112280 Active 024 Katelyn Bravo [facility] 4 03:55:07 Aneurysm of infrarenal abdominal aorta 348494840 Active 024 Surjit Cornejo MD [address] [place] [address], [address] [place] [address] 4 21:58:55 Problem Notes None recorded. Procedures Surgical History None recorded. Imaging Results Imaging Date Name Status LastModified by [facility] Details LastModified Time 05/05/2024 CT, angiogram, abdomen + pelvis, w/ contrast completed [facility] - [facility] [address] [place], [address], 05/14/2024 23:11:14 09/26/2024 CT, angiogram, abdomen + pelvis, w/wo contrast completed INTERFACE Sc Only - [facility] [address], [address], 09/26/2024 17:18:54 Procedure Notes None recorded. Medical [...] Last Updated DateTime 154.94 cm 50.6 kg/m2 685274. 76 g 68 /min 16 /min 97 % 97 % 142 mm[Hg] 82 mm[Hg] Yenny Vicente [facility] 14:32:08 Social History None recorded. Functional Status None recorded. Mental Status None recorded. Family History Nothing Reported. Medical History No medical history recorded. Past Encounters Encounter ID Performer Location Encounter Start Date Encounter Closed Date Diagnosis/Indication Diagnosis SNOMED-CT Code Diagnosis ICD10 Code Diagnosis Note [id number] Surjit Cornejo MD [address] [facility] ([place]) [address] [place] [address], [place] [address] 05/05/2024 13:28:23 05/05/2024 16:29:18 Aneurysm of infrarenal abdominal aorta 084738339 I71.43 Additional diagnosis detail: Infrarenal abdominal aortic aneurysm (AAA) without rupture Health Concerns Section Related Observation LastModified by Organization Detai ls LastModified Time None Recorded Concern Status LastModified by Organization Details LastModified Time None Recorded Advance Directives Directive None Recorded Payers Encounter Date Sequence Insurance Name Policy Number Policy Soares Covered Member ID Soares Member ID Guarantor Name 05/05/2024 1 MEDICARE-[place] (MEDICARE) Lani Covington [id number] Lani Covington 05/05/2024 2 [facility] ([facility]) Lani Covington [id number] Lani Covington Notes Date Note Type Note Provider Name and Address Organization Details Recorded Time 05/05/2024 text/html Chief Complaint (CC): Follow-up for endovascular aneurysm repair.History of Present Illness (HPI): The patient, a 79-year-old gentleman, presents for follow-up after undergoing right internal iliac artery coil embolization and right iliac limb extension for a type 1b endoleak in June 2023 at [facility]. He has a history of endovascular aneurysm [...] recent procedures. Surjit Cornejo MD [address] [facility], [place], [address], [facility] 05/14/2024 22:00:19
--- OUTSIDE RECORDS SUMMARY | 2024-11-17 10:33 | XMS_ITS | Clinical Summary ---
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[employer] Gender Identity Not on file Sexual Orientation [...] this topic Medical Devices Implanted Type Area Medical Unit Secretary Device Identifier Shelf Expiration Date Model / Serial / Lot Penumbra Sweta Coil Lp Endo Leak-11/03/2021 Implanted:2021 by Surjit Cornejo MD (Quantity not on file) Coil PENUMBRA 09/25/2024 [id number] / / [id number] Penumbra Sweta Coil Lp Endo Leak-11/03/2021 Implanted:2021 by Surjit Cornejo MD (Quantity not on file) Coil PENUMBRA 09/05/2024 [id number] / / [id number] Penumbra Sweta Coil Lp Endo Leak-11/03/2021 Implanted:2021 by Surjit Cornejo MD (Quantity not on file) Coil PENUMBRA 09/05/2024 [id number] / / [id number] Insurance MEDICARE [facility] Care Teams Two Way Radio Technician Relationship Specialty Start Date End Date Jayashree Orellana MD [address] [place] [address] PCP - General INTERNAL MEDICINE 10/31/21
--- NOTE | 2024-11-17 11:01 | ECG_ITS ---
Test Date: 2024-11-17 11:13:37 Measurements Intervals [place] Rate: 64 P: 32 OK: 135 QRS: 5 QRSD: 95 T: 5 QT: 413 QTc: 427 Interpretive Statements SINUS RHYTHM NONSPECIFIC T WAVE ABNORMALITY No previous ECG available for comparison Electronically Signed On 11-17-2024 13:15:58 CDT by Javad Bradley M.D.
[2024-11-17 11:23] LABS: Basophils Percent Auto 0.4 % (0.2-1.2); Eosinophils Absolute Auto 0.2 K/mm3 (0-0.3); Hematocrit 39.9 % (42.0-52.0); Hemoglobin 12.9 g/dL (14.0-18.0); Immature Granulocyte Absolute 0.04 K/mm3 (0.00-0.031); Immature Granulocyte Percent A 0.5 % (0-0.5); Lymphocytes Percent Auto 22.2 % (18.3-44.2); Mean Corpuscular HGB Conc 32.3 g/dl (32-36); Mean Corpuscular Hemoglobin 27.3 pg (26-34); Mean Corpuscular Volume 84.4 fl (80-100); Mean Platelet Volume 8.9 fl (7.4-10.4); Monocytes Percent Auto 12.1 % (2.6-8.5); Neutrophils Absolute Auto 5.1 K/mm3 (1.3-6.7); Neutrophils Percent Auto 62.8 % (45.5-73.1); Platelet Count Result 298 k/mm3 (150-375); Red Blood Count 4.73 M/mm3 (4.6-6.20); Red Cell Distribution Width 18.6 % (11.5-14.5); White Blood Count 8.1 K/mm3 (4.5-10.0)
[2024-11-17 11:53] LABS: Alanine Aminotransferase 21 U/L (6-50); Albumin Level 4.3 g/dL (3.5-5.1); Alkaline Phosphatase 138 U/L (38-126); Anion Gap 8 mmol/L (4-12); Aspartate Amino Transferase 24 U/L (17-59); Bilirubin,Total 0.4 mg/dL (0.2-1.3); Blood Urea Nitrogen 13 mg/dL (9-20); Calcium 9.2 mg/dL (8.4-10.2); Carbon Dioxide 30 mmol/L (22-30); Chloride 103 mmol/L (98-107); Estimated Glomerular Filt Rate > 60; Glucose 98 mg/dL (65-110); Potassium 4.4 mmol/L (3.4-5.0); Sodium 141 mmol/L (137-145)
[2024-11-17 12:19] LABS: Carcinoembryonic Antigen 2.2 ng/mL (0.0-3.0)
== END 2024-11-17 09:41 | disposition home or self-care (01) ==
LOC: ANHSURGERY 09:49
PROVIDERS: PCP Internal Medicine; Visit Provider Surgery
DX: Z01.818 Encounter for other preprocedural examination (principal); D37.4 Neoplasm of uncertain behavior of colon; I10 Essential (primary) hypertension
CPT/HCPCS: 36415; 80053; 82378; 85025; 86850; 86900; 86901; 93005

== ENCOUNTER 2024-11-28 14:40 | Inpatient (IN) | payer MEDICARE, OTHER, SELFPAY ==
[2024-11-17 10:09] VITALS: BP 141/78; PULSE 65; RESP 16; TEMP 37.1; O2SAT 100; BMI 37.4
--- NOTE | 2024-11-17 10:38 | PC.NURSE ---
Report to the Outpatient Waiting Room, entrance under the green pavilion located off [facility], at time ___7:30AM____ on date ____11/28/24___. Planned Procedure Time: ___9:30AM .? Time changes happen often and if your time is changed the preop area will call you the afternoon before. - You and your visitor will be asked to self-screen and do not enter if you have any COVID symptoms. Please call surgeon if you need to reschedule. - A mask is optional within the hospital at this time. BOWEL PREP DAY BEFORE SURGERY PER DR CYR.Patients may have clear liquids (water, carbonated beverages, clear teas, apple juice) until 3 hours prior to surgery (6:30AM) with a maximum of 20 ounces. No smoking, or chewing tobacco (or any form of nicotine). No chewing gum, candy or mints. Take only the following medications with a SIP of water on the morning of surgery: ____NONE DO NOT STOP ANY OF YOUR OTHER PRESCRIPTION MEDICATIONS PRIOR TO SURGERY EXCEPT THE FOLLOWING Hold all vitamins and supplements for 3 days per anesthesiologist.-11/24/24 Medications to discontinue per physician NONE Date to take last dose Please no make-up, nail stateless, hairspray, perfume, deodorant, or body powder the day of surgery.? No jewelry (including any body piercings) or valuables the day of surgery, leave them at home.? Please take a shower or bath the night before, or the morning of, surgery with an antibacterial soap.? Wear comfortable, loose fitting clothing.? - Jewelry must be removed prior to entering the operating room.? Rings and piercings that are not removed may be cut off. - The hospital will not accept responsibility for valuables.? - Please leave all valuables, including medications, at home the day of surgery. If you are going home after surgery, a licensed cat driver must drive you home.? - NO public transportation without another adult if you receive anesthesia. - We recommend that an adult stay with you for 24 hours following discharge. - We also recommend that you do not drive, make important decision, drink alcoholic beverages, or take any drugs that were not prescribed by your health care provider for at least 24 hours after your discharge time. Follow any additional instructions given to you from your surgeon. ANTIBIOTICS DAY BEFORE SURGERY BOWEL PREP [facility] DR [facility] BEFORE AND MORNING OF SURGERY. ENSURE BUNDLE PER DR CYR. Telephone instructions given to __PATIENT AND WIFE and asked if any additional questions and then verbalized understanding. Patient advised to call surgeon office or pre surgery nurse liaison [phone] if any additional questions.
[2024-11-28] VITALS (14 sets, daily range): BP systolic 109–136; BP diastolic 63–77; PULSE 72–86; RESP 10–20; TEMP 36.1–36.6; O2SAT 93–98; BMI 36.5
--- OUTSIDE RECORDS SUMMARY | 2024-11-28 00:19 | XMS_ITS | Data Portability ---
Author Organization [facility], [address] [place] [address] Neurology (MD) Address [address] [address] Care Team Providers Care Conservation Technician Name Role Phone SAL BORJAS Primary Care [...] 05/05/2005/05/2024 Crea iStat creatinine-i stat Not Available Pr Onl [facility] - [facility] [address] [place] [address], [address], 05/05/2024 13:00:36 05/05/2005/05/2024 Crea iStat creatinine 0.9 mg/dL 0.7-1. 3 Not Available Pr Only - [facility] [address], [address], 05/05/2024 13:00:36 05/05/2005/05/2024 Crea iStat eGFR;non-afr ican [place] 87 Not Available Pr Onl y - [facility] [address] [place] [address], [address], 05/05/2024 13:00:36 05/05/20 24 05/05/2024 Crea iStat eGFR; 105 (OFFICE SERVICES SPECIALIST [facility]EL KIDNE Y DISEA SE HAS A GFR LESS THAN 60 ML/WA N/1.7 3 MM FOR A PERIO D OF THREE MONTH S OR MORE. ) Not Available Pr Only - [facility] [address] [place] [address], [address], 05/05/2024 13:00:36 09/26/19 25 09/26/2024 POC CREA creatinine, I-stat 1.2 mg/dL 0.7-1. 4 Not Available Pr Only - [facility] [address], [address], 09/26/2024 16:08:24 05/05/20 24 05/05/2024 CT, angio gram, abdom en + pelvi s, w/ contr ast [address] [address] Teleph one [phone] Name: Lani Covington [id number] am Date: 2023 [...] arteri es extend ing into the right trial paralegal al iliac artery and mid to distal left common iliac artery . Stent graft appear s widely patent . Emboli c coils are presen t within the north fork aneury sm sac. There is eviden ce for type II endole ak within the north fork aneury sm sac which was presen t on prior. The north fork aneury sm sac measur es approx imatel y 7.6 x 8.5 cm, previo usly 7.2 x 7.9 cm. No retrop eriton eal hemorr nile is identi fied. Emboli c coils are also presen t within the right cap machine operator ior pelvis , unchan ged. Stable focal aneury smal dilata tion of the right proxim al internet sales director al iliac artery measur ing approx imatel [...] al increa se in size of the north fork aneury sm sac post aortob iiliac stent repair with eviden ce for persis tent type II endole ak. No retrop eriton eal pelvic hemorr nile is identi fied. 2. Coloni c divert iculos is. Electr onical ly signed in [place] amanda by: ELIZABETH VARGAS MD on:04/23 12:53 PM cc: Page PAGE 1 of [facility] 1 [email or web address] Pr Only - [facility] [address] [place] [address], [address], 05/14/2024 23:11:14 09/26/19 25 09/26/2024 CT, angio gram, abdom en + pelvi s, w/wo contr [facility] [address] [place] [address] Name: LANI COVINGTON 6 Age: 79 : 1944 Exam Date: 2024 ACCESS ION: [id number] ESTEFANI KILPATRICK MD: MARGI SINGH Exam: CTA [...] in the left common iliac and right trial paralegal al iliac artery . There is metall [...] namica lly signif icant stenos is. Right internet sales director al iliac artery is comple tely occlud ed at its origin with some distal collat eral recons tituti on. The trial paralegal al iliac arteri es are patent withou [...] was dictat ed remote ly by a [facility] Radiol ogist in [place], [place]. Final Report Dictat ed: 16:14 Db Anderson MD Signed : 16:14 Db Anderson MD INTERFACE [facility] [address] [place] [address], [address], 09/26/2024 17:18:54 Result Notes None recorded. Problems Name Problem SNOMED Code Status Onset Date Resolution Date Notes Provider Name and Address Organization Details Recorded Time Abdominal aortic aneurysm without rupture 12195314 Active 024 Katelyn Bravo [facility] 4 03:55:07 Aneurysm of infrarenal abdominal aorta 750060313 Active 024 Surjti Cornejo MD [address] [place] [address], [address] [place] [address] 4 21:58:55 Problem Notes None recorded. Procedures Surgical History None recorded. Imaging Results Imaging Date Name Status LastModified by Organiz [facility] Details LastModified Time 05/05/2024 CT, angiogram, abdomen + pelvis, w/ contrast completed [email or web address] Pr Only - [facility] Rad[facility] [address] [place], [address], 05/14/2024 23:11:14 09/26/2024 CT, angiogram, abdomen + pelvis, w/wo contrast completed INTERFACE Sc Only - [facility] [address] [place] [address] [place], [address], 09/26/2024 17:18:54 Procedure Notes None recorded. Medical [...] Last Updated DateTime 154.94 cm 50.6 kg/m2 031133. 76 g 68 /min 16 /min 97 % 97 % 142 mm[Hg] 82 mm[Hg] Yenny Vicente [facility] 14:32:08 Social History None recorded. Functional Status None recorded. Mental Status None recorded. Family History Nothing Reported. Medical History No medical history recorded. Past Encounters Encounter ID Performer Location Encounter Start Date Encounter Closed Date Diagnosis/Indication Diagnosis SNOMED-CT Code Diagnosis ICD10 Code Diagnosis Note [id number] Surjit Cornejo MD [address] [facility]) [address] [place] [address] [address] 05/05/2024 13:28:23 05/05/2024 16:29:18 Aneurysm of infrarenal abdominal aorta 209367260 I71.43 Additional diagnosis detail: Infrarenal abdominal aortic aneurysm (AAA) without rupture Health Concerns Section Related Observation LastModified by Organization Detai ls LastModified Time None Recorded Concern Status LastModified by Organization Details LastModified Time None Recorded Advance Directives Directive None Recorded Payers Encounter Date Sequence Insurance Name Policy Number Policy Soares Covered Member ID Soares Member ID Guarantor Name 05/05/2024 1 [place]ARE[place] (MED[place]ARE[place] Lani Covington [id number] Lani Covington 05/05/2024 2 [facility] Lani Covington [id number] Lani Covington Notes Date Note Type Note Provider Name and Address Organization Details Recorded Time 05/05/2024 text/html Chief Complaint (CC): Follow-up for endovascular aneurysm repair.History of Present Illness (HPI): The patient, a 79-year-old gentleman, presents for follow-up after undergoing right internal iliac artery coil embolization and right iliac limb extension for a type 1b endoleak in June 2023 at [facility]. He has a history of endovascular [...] recent procedures. Surjit Cornejo MD [address] [facility], [place], [address], [facility] 05/14/2024 22:00:19
--- OUTSIDE RECORDS SUMMARY | 2024-11-28 00:19 | XMS_ITS | Clinical Summary ---
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 Gender Identity Not on file Sexual Orientation [...] 2023-2 5 season) 2024 05/26/2021, 11/01/2020, 10/11/2020 Zoster Vaccines Completed 05/08/2020, 01/25/2020 Meningococcal B Vaccine Aged Out No l onger eligible based on patient's age to complete this topic Meningococcal Vaccine Aged Out No jose gabriel eligible based on patient's age to complete this topic RSV Immunizations Under 20 Months Aged Out No longer eligible b ased on patient's age to complete this topic Medical Devices Implanted Type Area Criminal Lawyer Device Identifier Shelf Expiration Date Model / Serial / Lot Penumbra Sweta Coil Lp Endo Leak-11/03/2021 Implanted:2021 by Surjit Cornejo MD (Quantity not on file) Coil PENUMBRA 09/25/2024 [id number] / / [id number] Penumbra Sweta Coil Lp Endo Leak-11/03/2021 Implanted:2021 by Surjit Cornejo MD (Quantity not on file) Coil PENUMBRA 09/05/2024 [id number] / / [id number] Penumbra Sweta Coil Lp Endo Leak-11/03/2021 Implanted:2021 by Surjit Cornejo MD (Quantity not on file) Coil PENUMBRA 09/05/2024 [id number] / / [id number] Insurance MEDICARE [facility] Care Teams Core Dropper Relationship Specialty Start Date End Date Jayashree Orellana MD [address] [place] [id number] PCP - General INTERNAL MEDICINE 10/31/21
[2024-11-28] MEDS: LACTATED RINGERS 1,000 ML 30 ML IV CONT ×2 (08:15→13:13)
--- NOTE | 2024-11-28 08:47 | WPDHPUPDATE1 ---
History and Physical Update Update Date/Time: 11/28/24 08:47 History and Physical has been reviewed, including an updated exam of the patient. There are NO changes in the patient's condition. Risks, benefits, and alternatives have been discussed and questions answered. Patient agrees to proceed with procedure.
--- NOTE | 2024-11-28 08:47 | PM.IMHP ---
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 He has a history of iron deficiency anemia and recently underwent colonoscopy. A large cecal polyp and ascending colon polyp were identified. He reports no changes since last seen in the office. Review of Systems Review of Systems: All systems reviewed & are unremarkable except as noted in HPI and below Constitutional: Constitutional: Denies chills, Denies fever(s), Denies headache(s) and Denies weight loss Eyes: Eyes: Denies change in vision ENT: Denies dizziness, Denies headache(s), Denies neck mass and Denies throat swelling Cardiovascular: Cardiovascular: Denies chest pain, Denies lightheadedness and Denies dyspnea Respiratory: Respiratory: Denies cough, Denies dyspnea and Denies wheezing Gastrointestinal: Gastrointestinal: Denies abdominal pain, Denies change in bowel habits, Denies nausea and Denies vomiting Genitourinary: Genitourinary: Denies hematuria and Denies dysuria Musculoskeletal: Musculoskeletal: Reports as per HPI Integumentary/Breasts: Skin/Breast: Reports as per HPI Neurologic: Denies dizziness and Denies headache(s) Allergic/Immunologic: Allergic/Immunologic: Denies throat swelling and Denies wheezing PMFSH Past Medical History Medical History AAA (abdominal aortic aneurysm) Hyperlipidemia Hypertension Cellulitis Surgical History Surgical History History of abdominal aortic aneurysm repair History of colonoscopy Family History Family History Father Acute myocardial infarction Social History Social History Smoking packs per day: 1 Smoking cigarettes per day: 20.0 Years smoked: 40 Smoking pack-years: 40.00 Smoking status: Former smoker Tobacco type: cigarettes Alcohol intake: current Drinks per week: 1 Alcohol use details: socially Substance use: never Substance use type: does not use Do You Feel Safe in your Home?: Yes Lack of Transportation: No Lack of Food: Never True Current Housing: I Have Housing Concerned About Future Housing: No Difficulty Paying Gas/Electric Bills: No Difficulty Paying for Meds: No Currently Unemployed: No Education: Bachelor's Degree Difficulty w/ Childcare or Family Care: No Living arrangements: with family Occupation/Education: retired Spiritual care concerns: No Meds Home Medications and Allergies Home Medications ?Medication ?Instructions ?Recorded ?Confirmed ?Type atorvastatin 20 mg tablet 20 mg PO DAILY 10/18/21 11/17/24 History losartan 100 100 tablet PO DAILY 10/18/21 11/17/24 History mg-hydrochlorothiazide 12.5 mg tablet timolol maleate 0.5 % eye drops 1 drp LEFT EYE BID 10/18/21 11/17/24 History amlodipine 10 mg tablet 10 mg PO DAILY 09/05/24 11/17/24 History aspirin 81 mg tablet,delayed 81 mg PO DAILY 09/05/24 11/17/24 History release (Adult Low Dose Aspirin) esomeprazole magnesium 20 mg 20 mg PO DAILY 09/05/24 11/17/24 History capsule,delayed release (Nexium) ferrous sulfate 325 mg (65 mg 325 mg PO DAILY 09/05/24 11/17/24 History iron) tablet (Iron (ferrous sulfate)) multivitamin 1 tablet PO DAILY 09/05/24 11/17/24 History ciprofloxacin HCl 500 mg tablet See Rx Instructions .Route 10/26/24 11/17/24 Rx .COMPLEX #1 tablet metronidazole 500 mg tablet See Rx Instructions .Route 10/26/24 11/17/24 Rx .COMPLEX #3 tabs acetaminophen 325 mg tablet 650 mg PO Q8H PRN pain 11/17/24 11/17/24 History (Tylenol) clotrimazole-betamethasone 1 1 applic topical DAILY 11/17/24 11/17/24 History %-0.05 % topical cream Allergies Allergy/AdvReac Type Severity Reaction Status Date / Time No Known Allergies Allergy Verified 11/17/24 10:00 Exam Const: General: no acute distress and alert Orientation/consciousness: patient oriented x3 HENMT: Head: normocephalic and atraumatic Ears: hearing grossly normal bilaterally Face/Nose/Sinus: Normal nares present Mouth: Yes Normal oral and palatal mucosa present Eyes: Periorbital: periorbital findings normal Sclera: sclerae normal EOM: EOMs intact bilaterally Neck: Neck: normal visual inspection, no lymphadenopathy and trachea midline Chest: Chest palpation & inspection: normal inspection of the chest Resp: Effort & Inspection: normal respiratory effort Auscultation: clear to auscultation bilaterally Cardio: Jugular venous distension: no JVD Rate: regular rate Rhythm: regular rhythm Heart sounds: S1 normal heart sound present and S2 normal heart sound present Peripheral pulses: Peripheral pulses 2+ throughout GI: Inspection: normal to inspection GI Palp: Yes Soft to palpation, No Tenderness to palpation present (GI), No Guarding due to palpation present (GI) and No Rebound tenderness present Percussion: Yes normal to percussion Auscultation: normal bowel sounds : General: Yes no CVA tenderness Back/Spine/Pelvis: Back: no CVA tenderness Neuro: General: patient oriented x3, no focal motor deficits and CN's II-XI intact bilaterally Cognition (Neuro): normal cognition Speech: normal speech Motor exam (neuro): 5/5 motor strength present throughout Extrem: General: capillary refill normal and no clubbing, cyanosis or edema Assessment and Plan Assessment and plan (1) Villous adenoma of colon: Code(s): D37.4 - Neoplasm of uncertain behavior of colon Status: Acute Assessment and Plan: I have recommended laparoscopic right hemicolectomy, da Umang assisted. I have discussed the procedure, risks, benefits, and alternatives with the patient. All questions answered. No changes since last seen in office.
[2024-11-28] MEDS: ACETAMINOPHEN 500 MG TABLET 1000 MG PO ×3 (08:50→22:59)
[2024-11-28] MEDS: KETOROLAC 15 MG/ML VIAL (*BKC) IV PUSH (08:50)
--- NOTE | 2024-11-28 09:00 | WPDANESEPPF ---
Anes - Initial Pre Proc Eval Procedure: Operation Date: 11/28/24 09:30 Proposed Procedures p Laparoscopic Right Hemicolectomy, Davinci Assisted - Markus Armando DO Date/Time: 11/28/24 09:00 Surgeon: Markus Armando DO Pre Op Diagnosis: villous adenoma of colon Patient Data Age: 79 Gender: M Height: 1.8 m Weight: 121.7 kg Last Vital Signs Temp 37.1 C 11/17/24 10:09 Pulse 65 11/17/24 10:09 Resp 16 11/17/24 10:09 BP 141/78 H 11/17/24 10:09 Pulse Ox 100 11/17/24 10:09 O2 Del Method Room Air 11/17/24 10:09 Allergies Allergy/AdvReac Type Severity Reaction Status Date / Time No Known Allergies Allergy Verified 11/17/24 10:00 Home Medications ?Medication ?Instructions ?Recorded ?Confirmed ?Type atorvastatin 20 mg tablet 20 mg PO DAILY 10/18/21 11/17/24 History losartan 100 100 tablet PO DAILY 10/18/21 11/17/24 History mg-hydrochlorothiazide 12.5 mg tablet timolol maleate 0.5 % eye drops 1 drp LEFT EYE BID 10/18/21 11/17/24 History amlodipine 10 mg tablet 10 mg PO DAILY 09/05/24 11/17/24 History aspirin 81 mg tablet,delayed 81 mg PO DAILY 09/05/24 11/17/24 History release (Adult Low Dose Aspirin) esomeprazole magnesium 20 mg 20 mg PO DAILY 09/05/24 11/17/24 History capsule,delayed release (Nexium) ferrous sulfate 325 mg (65 mg 325 mg PO DAILY 09/05/24 11/17/24 History iron) tablet (Iron (ferrous sulfate)) multivitamin 1 tablet PO DAILY 09/05/24 11/17/24 History ciprofloxacin HCl 500 mg tablet See Rx Instructions .Route 10/26/24 11/17/24 Rx .COMPLEX #1 tablet metronidazole 500 mg tablet See Rx Instructions .Route 10/26/24 11/17/24 Rx .COMPLEX #3 tabs acetaminophen 325 mg tablet 650 mg PO Q8H PRN pain 11/17/24 11/17/24 History (Tylenol) clotrimazole-betamethasone 1 1 applic topical DAILY 11/17/24 11/17/24 History %-0.05 % topical cream Patient hx anesthesia problems: none Family hx anesthesia problems: none Results Review: All pre-operative results and documents have been reviewed as part of the pre-operative evaluation. [facility] Past Medical History Medical History AAA (abdominal aortic aneurysm) Hyperlipidemia Hypertension Cellulitis Surgical History Surgical History History of abdominal aortic aneurysm repair History of colonoscopy Family History Family History Father Acute myocardial infarction Social History Social History Smoking packs per day: 1 Smoking cigarettes per day: 20.0 Years smoked: 40 Smoking pack-years: 40.00 Smoking status: Former smoker Tobacco type: cigarettes Alcohol intake: current Drinks per week: 1 Alcohol use details: socially Substance use: never Substance use type: does not use Do You Feel Safe in your Home?: Yes Lack of Transportation: No Lack of Food: Never True Current Housing: I Have Housing Concerned About Future Housing: No Difficulty Paying Gas/Electric Bills: No Difficulty Paying for Meds: No Currently Unemployed: No Education: Bachelor's Degree Difficulty w/ Childcare or Family Care: No Living arrangements: with family Occupation/Education: retired Spiritual care concerns: No Anes - Eval Final PreProcedure Day of Procedure 11/28/24 09:00 Patient weight: obese Heart: regular rate and rhythm Lungs: decreased breath sounds Airway: Mallampati scale class II Neurological: alert and oriented Last oral intake: >/= 8 hours ASA classification: III Emergent: no Anesthetic plan: proceed Anesthesia type and monitoring: general ETT and standard monitoring Results Review: All pre-operative results and documents have been reviewed as part of the pre-operative evaluation. Informed Consent: The patient's anesthetic plan and its attendant risks and benefits were discussed with the patient/family/POA. Questions were solicited and answers provided to the satisfaction of the patient/family/POA.
[2024-11-28] MEDS: ceFAZolin 2 GM/D5W 50 ML 2 GM/50 ML BAG IVPB (09:21)
[2024-11-28] MEDS: metroNIDAZOLE 500 MG/ISO 100ML 500 MG/100 ML BAG 100 MG IVPB (09:21)
[2024-11-28] MEDS: BUPIVACAINE/EPINEPHRINE 0.5% 50 ML VIAL 30 ML INFILTRATE (10:12)
--- NOTE | 2024-11-28 13:06 | W.PM.PROC2 ---
Procedure Note - Detailed Date of Procedure 11/28/24 Pre-op Diagnosis villous adenoma of colon Post-op Diagnosis Same Procedure Performed Laparoscopic right hemicolectomy with ileocolic anastomosis, da Umang assisted Surgeon Markus Armando, DO Anesthesia General and Local (0.5% bupivacaine with epinephrine) Indications This is a 79-year-old man who presents with an adenoma of the cecum and ascending colon. He had undergone colonoscopy on 10/19/2024 for iron deficiency anemia. A large polyp was identified in the cecum as well as in the ascending colon. Biopsies confirmed evidence of villous and tubulovillous adenomas. He now presents for laparoscopic right hemicolectomy, da Umang assisted. Findings Robotic assisted laparoscopic right hemicolectomy was performed. A high ligation of the ileocolic vessels and right branch of the middle colic artery was performed. A location on the proximal transverse colon was identified for are distal resection as well as an area on the terminal ileum for the proximal resection. Indocyanine green was used to confirm adequate perfusion to these locations before and after the anastomosis. A [id number] isoperistaltic anastomosis was performed. The right colon was removed and sent to the lab for pathology. Description of Procedure Procedure as well as risks, benefits, and alternatives were discussed with the patient.? Written consent was obtained and placed in chart prior to procedure.? Patient was brought back to surgical suite.? He was placed supine on operating table.? Time-out was done to confirm patient and procedure.? He was then intubated by the anesthesia department.? His abdomen was prepped and draped in sterile fashion using chlorhexidine prep.? An 8 mm incision was made in the left upper quadrant and a 5 mm Optiview trocar was advanced through the abdominal layers under direct visualization.? Once inside the abdominal cavity, carbon dioxide insufflation was used to create a pneumoperitoneum.? Camera was inserted in the abdomen was inspected.? The patient was placed in 5 degree Trendelenburg and 10? rotated left an 8 mm incision was made in the suprapubic region in midline and an 8 mm trocar was inserted under direct visualization another 8 mm incision was made in the umbilical region just inferior into the left of the umbilicus and an 8 mm trocar was inserted under direct visualization.? A 12 mm incision was made in the left lateral abdomen and a 12 mm trocar was inserted under direct visualization.? An 5 mm incision was made in the left lower quadrant and an 5 mm assist port was placed under direct visualization.? The 5 mm left upper quadrant port was then removed and exchanged for an 8 mm port.? The robotic arms were then brought up to the patient's bedside and secured to the ports.? The camera and instruments were then inserted.? I then moved over to the robotic console and took control of the camera and instruments.? Thorough inspection was made around the abdominal cavity.? The omentum was then reflected cephalad over the transverse colon.? The area near the ileocecal valve was grasped and retracted anterior and laterally to tent up the ileocolic pedicle.? Scissors with electrocautery were then used to perform the medial to lateral dissection.? I entered into the avascular plane just inferior to the ileocolic pedicle and carefully dissected cephalad to identify the duodenum.? Once the duodenum was identified and then continued sweeping the retroperitoneal structures posteriorly and then isolated the ileocolic pedicle.? A high ligation of the ileocolic vessels was then performed using the vessel sealer.? Hemostasis appeared adequate.? The medial to lateral dissection was then continued cephalad towards the hepatic flexure.? I continued this dissection until I created a window in the hepatocolic ligament.? I then took down the hepatic flexure using the vessel sealer and then continued this dissection caudally along the lateral peritoneal reflections of the ascending colon.? The root of the mesentery at the terminal ileum was then also taken down using scissors with electrocautery to allow adequate mobilization of the terminal ileum up to the transverse colon.? I then used the vessel sealer to continue taken down the mesentery of the terminal ileum all the way to the point of transection and then I also took down the mesocolon towards the point of transection for the transverse colon.? The right branch of the middle colic artery was ligated as the mesocolon was taken down using the vessel sealer.? Indocyanine green was then infused to ensure adequate perfusion to the proximal and distal limbs.? I confirmed adequate perfusion at the point of transection and then used a 60 mm blue load stapler to come across the terminal ileum.? I then identified my point for? proximal transverse colon transection and again came across the colon at this point with a 60 mm blue load stapler.? Once this was done the right colon was completely freed up and was placed over the right lobe of the liver to be? removed at the end the procedure.? The 2 ends of the bowel were then brought together in appeared to come together in a [id number] fashion without any tension.? I placed the terminal ileum alongside the transverse colon in an isoperistaltic fashion.? Enterotomies were then made on the anti mesenteric border of the terminal ileum and transverse colon using scissors with electrocautery.? The 60 mm white load stapler was then advanced through each enterotomy in the bowel was clamped together in a [id number] fashion.? Once the bowel appeared in proper position I then fired the stapler to create the [id number] anastomosis.? The anastomosis was carefully inspected and appeared patent and healthy and viable.? The enterotomy was then closed using 3 0 V lock running suture.? A 2nd layer closure was then performed using 3-0 V lock seromuscular imbricating sutures.? Indocyanine green was then used 1 final time to assess adequate perfusion.? One final inspection was made around the abdominal cavity and hemostasis appeared adequate and no other abnormalities were noted.? A laparoscopic grasper was then placed on the terminal ileum to secure the specimen for extraction.? The robotic instruments were then removed and the robotic arms were disengaged from the ports.? The pneumoperitoneum was released and the ports were then removed.? The patient was flattened out in bed.? The 12 mm port site was extended to about 3 cm transversely using a 15 blade scalpel. Electrocautery was used for hemostasis and for dissection to the fascia. The anterior rectus sheath was then incised transversely using electrocautery. The rectus muscle was then divided along its fibers and the peritoneum was extended slightly wider using electrocautery. The small Jovani wound protector was then inserted and the specimen was then delivered through the wound protector.? One final inspection was made through the wound protector and no other abnormalities were noted.? The wound protector was then removed.? The peritoneum was then closed using 0 Vicryl running suture.? The anterior rectus sheath was then reapproximated using 0 PDS running suture.? 0.5% bupivacaine with epinephrine was infiltrated locally around the incisions and abdominal wall.? The skin of all the incisions was then approximated using 4 Monocryl subcuticular suture.? Exofin glue was then applied on top.? The patient was then awakened from anesthesia, extubated, and transferred to recovery. Estimated Blood Loss 25 Pathology Yes (right colon) Complications No immediate complications Condition Stable Disposition Floor [facility] Billing Surgery - Charge Forward: Surgery Billing
--- NOTE | 2024-11-28 14:58 | ADMGEN ---
This patient, Justus Covington, was admitted to [facility] Surg Room 328-01. Patient/family oriented to hospital policies and general routines including ID bracelet, bed and alarms, visiting hours, pain management, procedures, bathroom and other care routines, personal items, smoking policy, room service/diet, and visiting hours. Information on how to activate the Rapid Response Team has been discussed. Patient/Family are encouraged to report perceived risks to care and to ask questions if they do not understand what they are told or what they should do.
[2024-11-28] MEDS: LACTATED RINGERS 1,000 ML 100 ML IV CONT (15:14)
[2024-11-28] MEDS: TIMOLOL MALEATE 0.5% OP SOLN 5 ML BOTTLE 1 DROP LEFT EYE (20:15)
[2024-11-29] MEDS: LACTATED RINGERS 1,000 ML 100 ML IV CONT (01:58)
[2024-11-29 03:34] VITALS: BP 113/68; PULSE 70; RESP 16; TEMP 36.4; O2SAT 95
[2024-11-29] MEDS: ACETAMINOPHEN 500 MG TABLET 1000 MG PO ×4 (05:06→23:50)
[2024-11-29 06:11] LABS: Hemoglobin 11.2 g/dL (14.0-18.0); Mean Corpuscular Hemoglobin 27.3 pg (26-34); Mean Corpuscular Volume 85.2 fl (80-100); Mean Platelet Volume 8.9 fl (7.4-10.4); Platelet Count Result 276 k/mm3 (150-375); Red Blood Count 4.11 M/mm3 (4.6-6.20); Red Cell Distribution Width 17.4 % (11.5-14.5); White Blood Count 13.3 K/mm3 (4.5-10.0)
[2024-11-29 06:25] LABS: Anion Gap 8 mmol/L (4-12); Blood Urea Nitrogen 11 mg/dL (9-20); Calcium 8.7 mg/dL (8.4-10.2); Carbon Dioxide 28 mmol/L (22-30); Chloride 103 mmol/L (98-107); Estimated CRCL calculation 80 ml/min; Estimated Glomerular Filt Rate > 60; Glucose 108 mg/dL (65-110); Potassium 3.7 mmol/L (3.4-5.0); Sodium 139 mmol/L (137-145)
[2024-11-29 08:17] VITALS: BP 122/64; PULSE 70; RESP 16; TEMP 36.1; O2SAT 96
[2024-11-29] MEDS: ENOXAPARIN 40 MG/0.4 ML SYRINGE SUB-Q (08:46)
[2024-11-29] MEDS: PANTOPRAZOLE 40 MG TABLET PO (08:46)
[2024-11-29] MEDS: hydroCHLOROthiazide 12.5 MG CAPSULE PO (08:47)
[2024-11-29] MEDS: LOSARTAN POTASSIUM 100 MG TABLET PO (08:47)
[2024-11-29] MEDS: ASPIRIN 81 MG ENTERIC TABLET PO (08:47)
[2024-11-29] MEDS: ATORVASTATIN 20 MG TABLET PO (08:47)
[2024-11-29] MEDS: TIMOLOL MALEATE 0.5% OP SOLN 5 ML BOTTLE 1 DROP LEFT EYE ×2 (08:48→20:29)
[2024-11-29] MEDS: BETAMETHASONE/CLOTRIMAZOLE CREAM 15 GM TUBE 1 APPLIC TOPICAL (08:49)
--- NOTE | 2024-11-29 10:52 | P.PNGS_ITS ---
Progress Note: A&P Assessment and Plan (1) Villous adenoma of colon: Code(s): D37.4 - Neoplasm of uncertain behavior of colon Status: Acute Assessment and Plan: * Advance diet and stop IV fluids * Increase activity * Final pathology pending (2) Hypertension: Code(s): I10 - Essential (primary) hypertension Status: Acute (3) Iron deficiency anemia: Code(s): D50.9 - Iron deficiency anemia, unspecified Status: Acute Subjective Subjective Date/Time Seen: 11/29/24 10:52 Interval history: Doing well. Pain controlled. Hasn't been out of bed yet. Was required to use urinal instead of ambulating to the bathroom. No flatus or BM yet. No bloating or nausea with liquids. Exam GI: Inspection: non-distended and incision (intact with glue) GI Palp: Yes Soft to palpation, No Tenderness to palpation present (GI) and No Guarding due to palpation present (GI) Auscultation: normal bowel sounds Objective Data Vital Signs Vital Signs: Vital Signs - 24 hr 11/28/24 13:13 11/28/24 13:25 11/28/24 13:40 Temperature 98 F Pulse Rate 79 73 72 Respiratory Rate 10 L 12 12 Blood Pressure 110/63 109/66 109/72 Pulse Oximetry 95 97 97 Oxygen Delivery Simple Face Mask Simple Face Mask Simple Face Mask Oxygen Flow Rate 8 8 8 11/28/24 13:50 11/28/24 13:55 11/28/24 14:10 Temperature Pulse Rate 77 76 Respiratory Rate 16 20 Blood Pressure 122/74 120/77 Pulse Oximetry 93 93 Oxygen Delivery Room Air Nasal Cannula Nasal Cannula Oxygen Flow Rate 2 2 11/28/24 14:25 11/28/24 14:39 11/28/24 14:40 Temperature 97 F L 97.1 F L Pulse Rate 73 72 74 Respiratory Rate 12 16 18 Blood Pressure 116/77 120/73 126/71 Pulse Oximetry 94 97 96 Oxygen Delivery Nasal Cannula Nasal Cannula Oxygen Flow Rate 2 2 11/28/24 14:55 11/28/24 15:25 11/28/24 16:25 Temperature 97.4 F L 97.8 F 97.8 F Pulse Rate 76 80 80 Respiratory Rate 20 20 20 Blood Pressure 130/70 134/74 121/74 Pulse Oximetry 97 98 97 Oxygen Delivery Oxygen Flow Rate 11/28/24 20:00 11/28/24 20:19 11/28/24 23:38 Temperature 97.9 F 97.5 F L Pulse Rate 86 73 Respiratory Rate 17 16 Blood Pressure 126/73 119/64 Pulse Oximetry 95 97 Oxygen Delivery Room Air Oxygen Flow Rate 11/29/24 03:34 11/29/24 08:17 Temperature 97.6 F 96.9 F L Pulse Rate 70 70 Respiratory Rate 16 16 Blood Pressure 113/68 122/64 Pulse Oximetry 95 96 Oxygen Delivery Oxygen Flow Rate Intake/Output Intake/Output: Intake & Output 11/26/24 11/27/24 11/28/24 11/29/24 23:59 23:59 23:59 23:59 Intake Total 830 1777 Output Total 450 1725 Balance 380 52 Meds/Results Medications: Active Medications Generic Name Dose Route Start Last Admin Trade Name Freq PRN Reason Stop Dose Admin Acetaminophen 1,000 mg 11/28/24 18:00 11/29/24 05:06 Acetaminophen 500 Mg Tablet PO 1,000 mg Q6HR SEB Administration Amlodipine Besylate 10 mg 11/29/24 09:00 11/29/24 10:46 Amlodipine Besylate 10 Mg Tablet PO Not Given DAILY SEB Aspirin 81 mg 11/29/24 09:00 11/29/24 08:47 Aspirin 81 Mg Enteric Tablet PO 81 mg DAILY SEB Administration Atorvastatin Calcium 20 mg 11/29/24 09:00 11/29/24 08:47 Atorvastatin 20 Mg Tablet PO 20 mg DAILY SEB Administration Clotrimazole 1 applic 11/29/24 09:00 11/29/24 08:49 Betamethasone/Clotrimazole Cream 15 Gm Tube TOPICAL 1 applic DAILY SEB Administration Enoxaparin Sodium 40 mg 11/29/24 09:00 11/29/24 08:46 Enoxaparin 40 Mg/0.4 Ml Syringe SUB-Q 40 mg DAILY SEB Administration Hydrochlorothiazide 12.5 mg 11/29/24 09:00 11/29/24 08:47 Hydrochlorothiazide 12.5 Mg Capsule PO 12.5 mg QAM SEB Administration Losartan Potassium 100 mg 11/29/24 09:00 11/29/24 08:47 Losartan Potassium 100 Mg Tablet PO 100 mg DAILY SEB Administration Morphine Sulfate 2 mg 11/28/24 14:40 Morphine Sulfate (*Crx) 2 Mg/Ml Inj IV PUSH Q2H PRN Breakthrough Pain Rated 4-6 or NPO Morphine Sulfate 4 mg 11/28/24 14:40 Morphine Sulfate (*Crx) 4 Mg/Ml Inj IV PUSH Q2H PRN Breakthrough Pain Rated 7-10 or NPO Naloxone HCl 0.1 mg 11/28/24 14:40 Naloxone Hcl 0.4 Mg/Ml Vial IV PUSH Q2M PRN Opiate Reversal Ondansetron HCl 4 mg 11/28/24 14:40 Ondansetron Inj 4 Mg/2 Ml Vial IV PUSH Q4H PRN Nausea And Vomiting Oxycodone HCl 2.5 mg 11/28/24 14:40 Oxycodone Hcl (*Crx) 2.5 Mg Tab Ir PO Q4H PRN Pain Rated 4-6 Oxycodone HCl 5 mg 11/28/24 14:40 Oxycodone Hcl (*Crx) 5 Mg Tab Ir PO Q4H PRN Pain Rated 7-10 Pantoprazole Sodium 40 mg 11/29/24 09:00 11/29/24 08:46 Pantoprazole 40 Mg Tablet PO 40 mg QAM SEB Administration Timolol Maleate 1 drop 11/28/24 21:00 11/29/24 08:48 Timolol Maleate 0.5% Op Soln 5 Ml Bottle LEFT EYE 1 drop Q12HR SEB Administration Labs Labs: Laboratory Results - last 24 hr 11/29/24 05:46 WBC 13.3 H RBC 4.11 L Hgb 11.2 L Hct 35.0 L MCV 85.2 MCH 27.3 MCHC 32.0 RDW 17.4 H Plt Count 276 MPV 8.9 Sodium 139 Potassium 3.7 Chloride 103 Carbon Dioxide 28 Anion Gap 8 BUN 11 Creatinine 0.89 Estim Creat Clear Calc 80 Estimated GFR > 60 Glucose 108 Calcium 8.7
[2024-11-29 12:08] VITALS: BP 137/58; PULSE 70; RESP 16; TEMP 36.5; O2SAT 95
[2024-11-29 16:25] VITALS: BP 132/64; PULSE 73; RESP 16; TEMP 35.9; O2SAT 96
[2024-11-29] MEDS: amLODIPine BESYLATE 10 MG TABLET PO (20:28)
[2024-11-30 05:20] VITALS: BP 130/78; PULSE 72; RESP 18; TEMP 36.4; O2SAT 96
[2024-11-30] MEDS: ACETAMINOPHEN 500 MG TABLET 1000 MG PO (05:35)
[2024-11-30 06:20] LABS: Hematocrit 39.5 % (42.0-52.0); Hemoglobin 12.3 g/dL (14.0-18.0); Mean Corpuscular HGB Conc 31.1 g/dl (32-36); Mean Corpuscular Hemoglobin 27.3 pg (26-34); Mean Corpuscular Volume 87.6 fl (80-100); Mean Platelet Volume 9.1 fl (7.4-10.4); Platelet Count Result 304 k/mm3 (150-375); Red Blood Count 4.51 M/mm3 (4.6-6.20); Red Cell Distribution Width 17.9 % (11.5-14.5); White Blood Count 11.2 K/mm3 (4.5-10.0)
[2024-11-30 06:31] LABS: Anion Gap 7 mmol/L (4-12); Blood Urea Nitrogen 12 mg/dL (9-20); Calcium 9.1 mg/dL (8.4-10.2); Carbon Dioxide 33 mmol/L (22-30); Chloride 101 mmol/L (98-107); Estimated CRCL calculation 74 ml/min; Estimated Glomerular Filt Rate > 60; Glucose 112 mg/dL (65-110); Potassium 4.2 mmol/L (3.4-5.0); Sodium 141 mmol/L (137-145)
[2024-11-30 08:00] VITALS: BP 134/82; PULSE 84; RESP 16; TEMP 36.5; O2SAT 100
[2024-11-30] MEDS: PANTOPRAZOLE 40 MG TABLET PO (08:05)
[2024-11-30 08:06] VITALS: PULSE 84; RESP 16; O2SAT 100
[2024-11-30] MEDS: hydroCHLOROthiazide 12.5 MG CAPSULE PO (08:06)
[2024-11-30] MEDS: LOSARTAN POTASSIUM 100 MG TABLET PO (08:06)
[2024-11-30] MEDS: amLODIPine BESYLATE 10 MG TABLET PO (08:06)
[2024-11-30] MEDS: ASPIRIN 81 MG ENTERIC TABLET PO (08:06)
[2024-11-30] MEDS: ATORVASTATIN 20 MG TABLET PO (08:06)
[2024-11-30] MEDS: ENOXAPARIN 40 MG/0.4 ML SYRINGE SUB-Q (08:08)
--- NOTE | 2024-11-30 10:35 | P.DS_ITS ---
DS: Admitting Diagnosis Discharge Date 11/30/2024 Admitting Diagnosis Villous adenoma of colon DS: Discharge Diagnosis Discharge Diagnosis (1) Villous adenoma of colon: Code(s): D37.4 - Neoplasm of uncertain behavior of colon Status: Acute DS: Summary Hospital Course Reason for hospitalization: This is a 79-year-old man who was evaluated outpatient by Dr. Armando for an adenoma of the cecum and ascending colon. He had undergone colonoscopy on 10/19 for iron deficiency anemia. A large polyp was identified in the cecum as well as in the ascending colon. Biopsies confirmed evidence of villous and tubulovillous adenomas. He then presented for laparoscopic right hemicolectomy, da Umang assisted. Hospital Course: The patient underwent robotic assisted laparoscopic right hemicolectomy with i leocolic anastomosis by Dr. Armando on 11/28/2024. Surgery was straightforward with no immediate complications. (see operative note) his diet was advanced as tolerated postoperatively. He had no issues with nausea or vomiting. Bowel function returned by the end of postop day 1. His postoperative pain has been well controlled with Tylenol. He is tolerating activity in up in the chair and ambulating. He is voiding without any difficulty. Postoperative serial labs showed mild elevation of the white blood cell count following surgery, which is expected, and is trending down this morning. Otherwise, labs were unremarkable postoperatively. He is stable for discharge today. Pathology still pending at discharge. Status at Discharge Functional status at discharge: independent ambulation Overall status at discharge: patient is progressing back to baseline Time Spent with Patient Time attestation: Total time spent providing and/or coordinating discharge services: Exam Const: General: comfortable and no acute distress GI: Inspection: non-distended and incision (incisions dry and intact) GI Palp: Yes Soft to palpation, Yes Tenderness to palpation present (GI) (incisional) and No Guarding due to palpation present (GI) Auscultation: normal bowel sounds Neuro: General: moves all extremities and no focal motor deficits Extrem: General: no calf tenderness and no edema Psych: Mental Status: mental status grossly normal Insight: Good insight present (Psych) DS: Data Data Completed and Pending Completed studies during hospitalization: Pending at discharge 11/28/24 12:39 Surgical [PTH] Routine Labs on day of discharge: Labs from last 24 hours 11/30/24 05:59 WBC 11.2 H RBC 4.51 L Hgb 12.3 L Hct 39.5 L MCV 87.6 MCH 27.3 MCHC 31.1 L RDW 17.9 H Plt Count 304 MPV 9.1 Sodium 141 Potassium 4.2 Chloride 101 Carbon Dioxide 33 H Anion Gap 7 BUN 12 Creatinine 0.95 Estim Creat Clear Calc 74 Estimated GFR > 60 Glucose 112 H Calcium 9.1 Procedures/Treatments: Procedures Operation Date: 11/28/24 09:30 Actual Procedure Side Surgeon p Laparoscopic Right Hemicolectomy, Davinci Assisted Right Markus Armando DO Discharge Plan Discharge Attending physician on discharge: Markus Armando Discharging Clinician: Minna Solitario Anticipated Discharge Date/Time: 11/30/24 10:32 Patient Disposition: Home Activity: may shower, no straining, no driving and other - see discharge instructions Diet: low fiber Wound Care Instructions: incision open to air Discharge Instructions: Remember to use your incentive spirometer during your recovery to promote breathing. Surgery Discharge Instructions: * No heavy lifting more than 10 pounds for at least 2-3 weeks. Do not advance activity until seen by your surgeon.. * May shower, do not submerge in water for 2 weeks. * Walk at least 3 times daily. Stairs are okay. * Do not drive x 1 week or if taking narcotics * Follow-up with Dr. Armando as scheduled in [facility] on 12/21/2024 at 9:00 a.m. * You may take Tylenol 1000 mg every 6 hours as needed for pain. Patient Language: Algerian Stand Alone Forms: General Discharge Instructions Follow-up/Referrals: Markus Armando DO [Physician] - Keep Reg. Scheduled Appt. Discharge Medications: Continued atorvastatin 20 mg tablet 20 mg PO DAILY Patient Comments: HS timolol maleate 0.5 % drops 1 drp LEFT EYE BID Rx Instructions: See instructions losartan-hydrochlorothiazide 100-12.5 mg tablet 100 tablet PO DAILY Patient Comments: QAM clotrimazole-betamethasone 1-0.05 % cream 1 applic TOPICAL DAILY acetaminophen [Tylenol] 325 mg tablet 650 mg PO Q8H PRN (Reason: pain) amlodipine 10 mg tablet 10 mg PO DAILY Patient Comments: HS esomeprazole magnesium [Nexium] 20 mg capsule,delayed release(DR/EC) 20 mg PO DAILY aspirin [Adult Low Dose Aspirin] 81 mg tablet,delayed release (DR/EC) 81 mg PO DAILY multivitamin Tablet 1 tablet PO DAILY ferrous sulfate [Iron (ferrous sulfate)] 325 mg (65 mg iron) tablet 325 mg PO DAILY Discontinued ciprofloxacin HCl 500 mg tablet See Rx Instructions .Route .COMPLEX Qty: 1 0RF Rx Instructions: Take 1 tablet by mouth at 2:00 PM the day prior to surgery.; metronidazole 500 mg tablet See Rx Instructions .Route .COMPLEX Qty: 3 0RF Rx Instructions: Take 1 tablet by mouth at 1:00PM, 2:00PM, and 11:00PM the day prior to surgery.; Date of admission: 11/28/24 14:40 Primary Care Provider: Jayashree Orellana Admitting Provider: Markus Armando Attending physician on admission: Markus Armando Condition: Stable Quality VTE Prophylaxis VTE prophylaxis: mechanical ordered and pharmacologic ordered
== END 2024-11-30 10:58 | disposition home or self-care (01) | DRG 331 ==
LOC: ANH3MEDSUR 14:42
PROVIDERS: Admitting Provider Surgery; PCP Internal Medicine; Visit Provider Nurse Practitioner Family
PROC: 0DTF4ZZ Resection of Right Large Intestine, Percutaneous Endoscopic Approach (ICD-10-PCS; principal; 2024-11-28 09:30)
DX: D12.0 Benign neoplasm of cecum (principal); D12.2 Benign neoplasm of ascending colon; D50.9 Iron deficiency anemia, unspecified; E78.5 Hyperlipidemia, unspecified; I71.40 Abdominal aortic aneurysm, without rupture, unspecified; I10 Essential (primary) hypertension; E66.9 Obesity, unspecified; Z68.36 Body mass index [BMI] 36.0-36.9, adult; Z87.891 Personal history of nicotine dependence
CPT/HCPCS: 36415; 80048; 85027; 88307; 88309; A9270; J0330; J0690; J1100; J1171; J1650; J1836; J1885; J2003; J2405; J2704; J7030; J7120